=== PATIENT | male | born 1945 | race Caucasian/White ===

== ENCOUNTER → 2017-10-11 | Outpatient (CLI) | payer MEDICARE, OTHER ==
[2016-10-10 10:21] VITALS: BMI 24.8
[~2017-10-11] MED LIST: ACE325 PO; AMLO-99 PO; AMOX500T10 PO; ASPI-1471 PO; ASPI-764 PO; CA C1TAB85 PO; CHOL10005 PO; CLAR-1 PO; CYCL10TA29 PO; DICL-192 PO; DICL100G39 TOP; Docusate Sodium PO; ENOX80DI8 SQ; FLU45SYR17 IM; FLU45SYR25 IM ONLY; FLUT16SP19 NS; HCTZ25 PO; HYDR-385 PO; IBUP800T37 PO; KET10 PO; LEVO0.5P3 MC; LEVO50 PO; LEVO50TA86 PO; LEVO75TA73 PO; LIS5 PO; LISI-353 PO; LISI-362 PO; LOR5/325 PO; LORA-630 PO; Lisinopril PO; METO-1 PO; METO25TA89 PO; MIRT7.5T2 PO; ONDA4TAB PO; ONDA4TAB97 PO; OXYC-823 PO; OXYC-865 PO; PANT40TA63 PO; PANT40TA65 PO; PER PO; PNEU0.5D3 IM; POLY17PO25 PO; PRILOSEC PO; PRO25 PO; Pantoprazole Sod PO; TRA50 PO; TRAM-420 PO; TRAM100T22 PO; TRAZ-156 PO; TRI40I IART; TRI40I IM; TRIA15CR40 TP; VALS320T12 PO; WARF-1 PO; ZOL5 PO
[2017-10-11 09:58] LABS: INR 6.4
== END ==
LOC: LAB 09:15
PROVIDERS: ATTEND Internal Medicine
DX: I82.409 Acute embolism and thrombosis of unspecified deep veins of unspecified lower extremity (principal)
CPT/HCPCS: 36415; 85610

== ENCOUNTER → 2017-10-13 | Outpatient (CLI) | payer MEDICARE, OTHER ==
[2016-10-10 10:21] VITALS: BMI 24.8
[2017-10-13 08:59] LABS: INR 3.84
== END ==
LOC: LAB 08:39
PROVIDERS: ATTEND Internal Medicine
DX: I82.409 Acute embolism and thrombosis of unspecified deep veins of unspecified lower extremity (principal)
CPT/HCPCS: 36415; 85610

== ENCOUNTER → 2017-10-19 | Outpatient (CLI) | payer MEDICARE, OTHER ==
[2016-10-10 10:21] VITALS: BMI 24.8
--- NOTE | 2017-10-19 10:25 | EKG ---
FACILITY: [facility] - [place] PATIENT NAME: CORDELIA NEAL : [id number] MR: [id number] V: [id number] EXAM DATE: ORDERING PHYSICIAN: JOSÉ MIGUEL COLMENARES TECHNOLOGIST: BELKIS Palm Reason : SOB Blood Pressure : / mmHG Vent. Rate : 082 BPM Atrial Rate : 082 BPM P-R Int : 218 ms QRS Dur : 104 ms QT Int : 392 ms P-R-T Axes : 063 -81 061 degrees QTc Int : 457 ms Sinus rhythm with 1st degree AV block Left axis deviation Abnormal ECG When compared with ECG of 30-SEP-2016 09:52, premature ventricular complexes are no longer present Referred By: Confirmed By:
[2017-10-19 10:38] LABS: PLATELET COUNT, AUTOMATED 211 K/uL (150-450)
[2017-10-19 10:44] LABS: INR 2.81
[2017-10-19 11:02] LABS: LDL CHOLESTEROL 132 mg/dl
--- NOTE | 2017-10-19 14:14 | RADIOLOGY IMAGING REPORT ---
FAC[place]: [facility] [place] PATIENT NAME: Chito Jolley : 1945 MR: [id number] V: [id number] EXAM DATE: ORDERING PHYSICIAN: JOSÉ MIGUEL COLMENARES TECHNOLOGIST: Location: [facility] [place] Patient: Chito Jolley : 1945 Visit/Account:[id number] Date of Sevice: 10/19/2017 Exam type: CHEST PA AND LAT History: sob Comparison: September 30, 2016. Findings: There is chronic elevation of the right hemidiaphragm. No evidence of acute-appearing pulmonary cons olidation pleural effusion or pulmonary edema. The cardiac silhouette is normal in size. There Is a left shoulder arthroplasty. IMPRESSION: 1. Chronic elevation of the right hemidiaphragm although no evidence of acute pulmonary consolidatio n seen Report Dictated By: Asia Verde MD at 10/19/2017 2:07 PM Report E-Signed By: Asia Verde MD at 10/19/2017 2:09 PM WSN:[email or web address]
--- NOTE | 2017-10-19 16:26 | RADIOLOGY IMAGING REPORT ---
FACILITY: [facility] - [place], [place] PATIENT NAME: Chito Jolley : 1945 MR: [id number] V: [id number] EXAM DATE: ORDERING PHYSICIAN: JOSÉ MIGUEL COLMENARES TECHNOLOGIST: Location: [facility] Patient: Chito Jolley : 1945 Visit/Account:[id number] Date of Sevice: 10/19/2017 CTA CHEST WW/O CNTR (PULM ANG) HISTORY: see dx ADDITIONAL HISTORY: Elevated d-dimer. Shortness of breath. TECHNIQUE: CTA chest with intravenous contrast. Axial imaging acquired following administration of IV contrast timed for maximum opacification of the pulmonary arterial vasculature. Slab 3-D MIP samaria nstructed images were also created for further evaluation and interpretation. Reconstruction of the [facility] data set includes multiplanar 2-D in the sagittal and coronal planes and 3-D reconstructed larry nal slab MIP series. 3-D images were created by the technologist. One of the following dose optimiz ation techniques was utilized in the performance of this exam: Automated exposure control; adjustment of the mA and/or kV according to the patient's size; or use of an iterative reconstruction techniqu e. Specific details can be referenced in the facility's radiology CT exam operational policy. CONTRAST: 75 mL Isovue-370 COMPARISON: Comparison abdomen pelvis CT 03/08/2017 FINDINGS: Lungs/pleura: There is persistent mild peribronchial thickening seen right lower lobe unchanged. The re is associated mild right posterior basilar subpleural atelectasis or scar. There is a questionable 1.2 x 0.8 cm nodule with in the right pleura which is seen axial image 143-150 series 4. Heart/vessels: There is filling defect in the right lower lobe pulmonary artery with nonenhancement of the right lower lobe pulmonary arterial tree. There is a thin thread of persistent central luminal patency with contrasted blood passing through this area. This is best appreciated coronal axial imag es 135-142 series 4. Pulmonary arterial tree is otherwise normal in appearance. No convincing evidence of right heart strain. Pulmonary trunk is prominent however measuring 2.7 cm d iameter. Prominent vascular plaque is seen in the LAD. Mediastinum/lymph nodes: Negative. Visualized upper abdomen: Negative. Bones/soft tissues: Negative. Additional findings: None IMPRESSION: Near-complete obstruction of the right lower lobe pulmonary artery likely related to an acute or suba cute right lower lobe pulmonary embolus. There is associated mild chronic right lower lobe peribronch ial thickening and minimal right basilar scarring with a questionable right lower lobe pleural nodule . This raises the less likely possibility of malignancy but should warrant a follow-up study. Consequ ently, I would recommend a short-term follow-up contrasted CTA chest in 4 weeks to ensure sure there is resolution of the right lower lobe pulmonary arterial pathology and to reevaluate the right lower lobe pleura. Suspect pulmonary hypertension Results were called to JOSÉ MIGUEL COLMENARES at 10/19/2017 4:30 PM. He informs me the patient does have a h istory of previous pulmonary embolus but I do not have access to those prior exams. Acuity of the cur rent pulmonary embolus is uncertain although with residual tiny central patent lumen suggests it is o rganized and either subacute or chronic Report Dictated By: Carmine Ventura MD at 10/19/2017 2:44 PM Report E-Signed By: Carmine Ventura MD at 10/19/2017 4:22 PM WSN:[id number]
== END ==
LOC: LAB 10:17
PROVIDERS: ATTEND Internal Medicine
DX: Z96.611 Presence of right artificial shoulder joint (principal); J98.6 Disorders of diaphragm; I28.8 Other diseases of pulmonary vessels; R79.89 Other specified abnormal findings of blood chemistry; R07.9 Chest pain, unspecified; I82.409 Acute embolism and thrombosis of unspecified deep veins of unspecified lower extremity; R06.09 Other forms of dyspnea; M10.9 Gout, unspecified; E78.5 Hyperlipidemia, unspecified; I10 Essential (primary) hypertension; E03.9 Hypothyroidism, unspecified; R94.31 Abnormal electrocardiogram [ECG] [EKG]
CPT/HCPCS: 36415; 71046; 71275; 82040; 82247; 82310; 82374; 82435; 82465; 82565; 82947; 83718; 83880; 84075; 84132; 84155; 84295; 84443; 84450; 84460; 84478; 84520; 84550; 85025; 85379; 85610

== ENCOUNTER → 2017-10-20 | Outpatient (CLI) | payer MEDICARE, OTHER ==
[2016-10-10 10:21] VITALS: BMI 24.8
[2017-10-20 09:22] LABS: INR 2.68
== END ==
LOC: LAB 08:47
PROVIDERS: ATTEND Internal Medicine
DX: I82.409 Acute embolism and thrombosis of unspecified deep veins of unspecified lower extremity (principal)
CPT/HCPCS: 36415; 85610

== ENCOUNTER → 2017-10-25 | Outpatient (CLI) | payer MEDICARE, OTHER ==
[2016-10-10 10:21] VITALS: BMI 24.8
--- NOTE | 2017-10-26 19:55 | RADIOLOGY IMAGING REPORT ---
FACILITY: [facility] - [place] PATIENT NAME: CORDELIA NEAL : [id number] MR: [id number] V: [id number] EXAM DATE: ORDERING PHYSICIAN: JOSÉ MIGUEL COLMENARES TECHNOLOGIST: Katharine Harding EXAMINATION:TWO-DIMENSIONAL ECHOCARDIOGRAPH REASON:SHORTNESS OF BREATH. 2D Measurements (normal values in centimeters) LV endLV endRV endVent.LV PostAorticLeftPercent DiastolicSystolicDiastolicSeptumWallRootAtriumShortening (3.5-5.7)(0.9-2.6)(0.6-1.1)(0.6-1.1)(2.0-3.7)(1.9-4.0)(25-35%) [id number]% STROKE VOLUME: 73 mL ESTIMATED EJECTION FRACTION:75% PARASTERNAL LONG AXIS: Overall left ventricular systolic function does appear to be normal. No specific wall motion abnormalities are noted. The right ventricle also appears to contract normally. Aortic valve is sclerotic. Color examination of the valves revealed a trace of mitral and aortic insufficiency present. TAPSE is measured at 1.8 which is within normal range for right ventricular function. PARASTERNAL SHORT AXIS: Somewhat technically difficult but again overall left ventricular function appears to be normal. Aortic valve is not well seen but it does appear to be sclerotic possibly borderline stenotic. Trace of aortic insufficiency is noted. APICAL FOUR AND TWO CHAMBER: Normal left ventricular and right ventricular systolic function. Aortic valve area was measured at 2.0 cm2 with mean pressure gradient across the valve of 14 mmHg and a dimensionless index of 0.4 indicating mild to moderate stenosis. There is some aortic insufficiency present. Mitral valve area was measured within normal range at 4.7 cm2. Left atrial volume is moderately increased at 35 mL/m2. Right atrial volume is measured within normal range at 13 mL/m2. Mild amount of tricuspid insufficiency is noted. Tricuspid regurgitation V-max is measured at 3.22 m/sec. Estimated right atrial pressure is 3 mmHg. There is mild mitral annular calcification but no stenosis of the valve. No wall motion abnormalities are noted. SUBCOSTAL VIEW: Somewhat technically difficult but no pericardial effusion was noted. No atrial septal or ventricular septal defects were appreciated. Doppler examination of the mitral valve in diastole does reveal the A wave greater than the E wave. IVC is normal in size. OVERALL IMPRESSION: 1. Normal left ventricular ejection fraction between 70 to 75%. No wall motion abnormalities were noted. 2. Grade 1/4 decrease in diastolic function. 3. Mild right ventricular enlargement and moderate left atrial enlargement. The other chamber sizes are normal. 4. The aortic valve which appears to be mild to borderline moderately stenotic. The valve area was measured at 2.0 cm2 but the mean pressure gradient across the valve was 14 mmHg and the dimensionless index was 0.4. There is a trace amount of aortic insufficiency present. 5. There is mild mitral annular calcification. No stenosis in the mitral valve was noted. Trace to mild amount of mitral insufficiency was noted. 6. Trace amount of pulmonic insufficiency is noted. 7. A trace to mild amount of tricuspid insufficiency with estimated right ventricular systolic pressures of 44 mmHg which does include an estimated right atrial pressure of 3 mmHg indicating mild to borderline moderate pulmonary hypertension and increased right ventricular systolic pressures. 8. In comparison to the examination done on 02/10/13, the only change has been that the aortic valve has now become stenotic. The right ventricular pressures are approximately the same. Dictated by: Virginia Cabello M.D. on 10/25/2017 at 21:49 Transcribed by: MARYA on 10/26/2017 at 10:23 Approved by: Virginia Cabello M.D. on 10/26/2017 at 19:53 [facility]
== END ==
LOC: RESP 01:57
PROVIDERS: ATTEND Internal Medicine
DX: I51.7 Cardiomegaly (principal); I35.2 Nonrheumatic aortic (valve) stenosis with insufficiency; I70.8 Atherosclerosis of other arteries; I34.0 Nonrheumatic mitral (valve) insufficiency; I37.1 Nonrheumatic pulmonary valve insufficiency; I07.1 Rheumatic tricuspid insufficiency; I27.20 Pulmonary hypertension, unspecified
CPT/HCPCS: 93306; 94060; 94726; 94729

== ENCOUNTER → 2017-10-27 | Outpatient (CLI) | payer MEDICARE, OTHER ==
[2016-10-10 10:21] VITALS: BMI 24.8
[2017-10-27 10:43] LABS: INR 2.91
== END ==
LOC: LAB 08:45
PROVIDERS: ATTEND Internal Medicine
DX: I82.409 Acute embolism and thrombosis of unspecified deep veins of unspecified lower extremity (principal)
CPT/HCPCS: 36415; 85610

== ENCOUNTER → 2017-11-05 | Outpatient (CLI) | payer MEDICARE, OTHER ==
[2016-10-10 10:21] VITALS: BMI 24.8
[~2017-11-05] MED LIST changes: +HYDR-4225 PO
[2017-11-05 08:58] LABS: INR 3.25
== END ==
LOC: LAB 08:24
PROVIDERS: ATTEND Internal Medicine
DX: I82.409 Acute embolism and thrombosis of unspecified deep veins of unspecified lower extremity (principal)
CPT/HCPCS: 36415; 85610

== ENCOUNTER → 2017-11-18 | Outpatient (CLI) | payer MEDICARE, OTHER ==
[2016-10-10 10:21] VITALS: BMI 24.8
[~2017-11-18] MED LIST changes: +IOPAMIDOL 76% 75 ML INFUS BTL 75 ML ONE; +NS 0.9% 150 ML BAG 150 ML ONE; +PRED20TA6 PO
[2017-11-18 09:16] LABS: INR 2.39
--- NOTE | 2017-11-18 09:27 | RADIOLOGY IMAGING REPORT ---
FACILITY: [facility] PATIENT NAME: Chito Jolley : 1945 MR: [id number] V: [id number] EXAM DATE: ORDERING PHYSICIAN: JOSÉ MIGUEL COLMENARES TECHNOLOGIST: Location: [facility] Patient: Chito Jolley : 1945 Visit/Account:[id number] Date of Sevice: 11/18/2017 CTA CHEST WW/O CNTR (PULM ANG) HISTORY: PE, CP TECHNIQUE: CTA chest with intravenous contrast attention to pulmonary arteries. Sagittal, coronal a nd slab 3D MIP coronal reconstructed images were also created for further evaluation and interpretati on. One of the following dose optimization techniques was utilized in the performance of this exam: a utomated exposure control; adjustment of the mA and/or kV according to the patient's size; or use of an iterative reconstruction technique. Specific details can be referenced in the facility's radiolog y CT exam operational policy. CONTRAST: 75 mL Isovue-370 IV. COMPARISON: CT chest 10/09/2017. FINDINGS: Heart/vessels: There is no filling defect in either the right or left pulmonary arterial vascular tr ee. Again seen is narrowing of the right lower lobe pulmonary artery, with adjacent soft tissue thic kening. This is unchanged dating back to 07/27/2016. Lungs/pleura: There is mild atelectasis right lower lobe. There is mild pleural thickening right laurel ng base, unchanged. The lungs are otherwise clear. Mediastinum: Normal. Lymph nodes: There is no lymphadenopathy. Visualized upper abdomen: Visualized portions of the liver, spleen, adrenal glands, and pancreas are normal. Bones/soft tissues: There are postoperative changes from a left shoulder arthroplasty. IMPRESSION: 1. No evidence of acute pulmonary embolus. There is poor filling of the right lower lobe pulmonary artery, with adjacent soft tissue thickening, with narrowing of the artery. This is not significantl y changed from comparison CT abdomen pelvis 07/27/2016. Although CT abdomen pelvis was performed wit h slightly different bolus technique. This is unchanged from prior CT chest 10/19/2017. There is par tial atelectasis left lower lobe, likely secondary to postobstructive atelectasis. Recommend follow- up CT chest with IV contrast in 6 months to confirm stability. 2. Postoperative changes from a left shoulder arthroplasty. Report Dictated By: Dada Lopez at 11/18/2017 9:06 AM Report E-Signed By: Dada Lopez at 11/18/2017 9:23 AM WSN:[email or web address]
== END ==
LOC: CT 01:56
PROVIDERS: ATTEND Internal Medicine
DX: J98.11 Atelectasis (principal)
CPT/HCPCS: 36415; 71275; 85610; Q9967

== ENCOUNTER → 2017-11-23 | Outpatient (CLI) | payer MEDICARE, OTHER ==
[2016-10-10 10:21] VITALS: BMI 24.8
[~2017-11-23] MED LIST changes: -IOPAMIDOL 76% 75 ML INFUS BTL 75 ML ONE; -NS 0.9% 150 ML BAG 150 ML ONE; +PRED-420 PO; +REGADENOSON 0.4 MG/5 ML SYR ONE
--- NOTE | 2017-11-23 12:31 | RADIOLOGY IMAGING REPORT ---
FACILITY: [facility] - [place] PATIENT NAME: Chito Jolley : 1945 MR: [id number] V: [id number] EXAM DATE: ORDERING PHYSICIAN: JOSÉ MIGUEL COLMENARES TECHNOLOGIST: Location: [facility] - [place] Patient: Chito Jolley : 1945 Visit/Account:[id number] Date of Sevice: 11/23/2017 EXAMINATION: Single isotope SPECT imaging with regadenoson infusion and gated SPECT imaging. DATE OF EXAMINATION: 11/23/17. DATE OF INTERPRETATION: 11/23/17. REQUESTING PHYSICIAN: JOSÉ MIGUEL COLMENARES. INDICATION: The patient is a 72-year-old M evaluated for CP. PROCEDURE: After informed consent the patient received an intravenous injection of 12.2 mCi of Tc-99 m sestamibi followed at an appropriate time interval by rest imaging. The patient then subsequently received an intravenous infusion of 0.4 mg of regadenoson per protocol without complication. Resting heart rate was 82 bpm with a peak heart rate of 99 bpm. Blood pressure at rest was 168 / 99 and fol lowing infusion was 168 / 99. Baseline EKG demonstrates sinus rhythm. There were no EKG changes of ischemia following infusion. Symptoms were nonspecific. The patient then received an intravenous in jection of 30.3 mCi of Tc-99m sestamibi followed by stress imaging. RAW DATA: Examination of the summed raw data revealed a good quality study. MYOCARDIAL PERFUSION: The tomographic images demonstrate normal myocardial perfusion with no evidenc e of infarct or ischemia. There is no TID. GATED IMAGES: The gated images demonstrate hyperdynamic ejection fraction >70% with normal wall sandy on and thickening. IMPRESSION: 1. Nondiagnostic Lexiscan stress ECG 2. Normal myocardial perfusion scan. 3. Hyperdynamic LV systolic function; LVEF >70%. 4. Based on the results of this exam, the patient appears to be at low risk for future cardiovascular events. Report Dictated By: Shahram Pak at 11/23/2017 12:23 PM Report E-Signed By: Shahram Pak at 11/23/2017 12:27 PM WSN:[id number]
== END ==
LOC: RESP 02:26
PROVIDERS: ATTEND Internal Medicine
DX: R07.9 Chest pain, unspecified (principal); I10 Essential (primary) hypertension; R06.09 Other forms of dyspnea; I82.409 Acute embolism and thrombosis of unspecified deep veins of unspecified lower extremity; I26.99 Other pulmonary embolism without acute cor pulmonale
CPT/HCPCS: 78452; 93017; A9500; J2785

== ENCOUNTER → 2017-12-02 | Outpatient (CLI) | payer MEDICARE, OTHER ==
[2016-10-10 10:21] VITALS: BMI 24.8
[~2017-12-02] MED LIST changes: -REGADENOSON 0.4 MG/5 ML SYR ONE
[2017-12-02 08:41] LABS: INR 1.99
== END ==
LOC: LAB 08:17
PROVIDERS: ATTEND Internal Medicine
DX: Z51.81 Encounter for therapeutic drug level monitoring (principal); Z79.01 Long term (current) use of anticoagulants
CPT/HCPCS: 36415; 85610

== ENCOUNTER → 2017-12-16 | Outpatient (CLI) | payer MEDICARE, OTHER ==
[2016-10-10 10:21] VITALS: BMI 24.8
[2017-12-16 09:14] LABS: INR 1.49
== END ==
LOC: LAB 08:45
PROVIDERS: ATTEND Internal Medicine
DX: Z51.81 Encounter for therapeutic drug level monitoring (principal); Z79.01 Long term (current) use of anticoagulants
CPT/HCPCS: 36415; 85610

== ENCOUNTER → 2017-12-24 | Outpatient (CLI) | payer MEDICARE, OTHER ==
[2016-10-10 10:21] VITALS: BMI 24.8
[2017-12-24 08:49] LABS: INR 1.43
== END ==
LOC: LAB 08:10
PROVIDERS: ATTEND Internal Medicine
DX: I26.99 Other pulmonary embolism without acute cor pulmonale (principal)
CPT/HCPCS: 36415; 85610

== ENCOUNTER → 2018-02-04 | Outpatient (CLI) | payer MEDICARE, OTHER ==
[2016-10-10 10:21] VITALS: BMI 24.8
[2018-02-04 09:06] LABS: INR 3.59
== END ==
LOC: LAB 08:42
PROVIDERS: ATTEND Internal Medicine
DX: Z51.81 Encounter for therapeutic drug level monitoring (principal); Z79.01 Long term (current) use of anticoagulants
CPT/HCPCS: 36415; 85610

== ENCOUNTER → 2018-02-17 | Outpatient (CLI) | payer MEDICARE, OTHER ==
[2016-10-10 10:21] VITALS: BMI 24.8
[~2018-02-17] MED LIST changes: +LISI20TA29 PO
[2018-02-17 09:21] LABS: PLATELET COUNT, AUTOMATED 232 K/uL (150-450)
== END ==
LOC: LAB 08:39
PROVIDERS: ATTEND Internal Medicine
DX: Z12.5 Encounter for screening for malignant neoplasm of prostate (principal); M10.9 Gout, unspecified; I10 Essential (primary) hypertension; E03.9 Hypothyroidism, unspecified; I26.99 Other pulmonary embolism without acute cor pulmonale; R06.09 Other forms of dyspnea
CPT/HCPCS: 36415; 81001; 83880; 84443; 84550; 85025; G0103; 82040; 82247; 82310; 82374; 82435; 82565; 82947; 84075; 84132; 84153; 84155; 84295; 84450; 84460; 84520

== ENCOUNTER → 2018-03-03 | Outpatient (CLI) | payer MEDICARE, OTHER ==
[2016-10-10 10:21] VITALS: BMI 24.8
[~2018-03-03] MED LIST changes: +COLC0.6T2 PO; +ESCI10TA8 PO; +FEBU40TA2 PO
[2018-03-03 09:27] LABS: INR 2.35
== END ==
LOC: LAB 08:40
PROVIDERS: ATTEND Internal Medicine
DX: I26.99 Other pulmonary embolism without acute cor pulmonale (principal); M10.9 Gout, unspecified; I82.409 Acute embolism and thrombosis of unspecified deep veins of unspecified lower extremity
CPT/HCPCS: 36415; 85610

== ENCOUNTER → 2018-05-12 | Outpatient (CLI) | payer MEDICARE, OTHER ==
[2016-10-10 10:21] VITALS: BMI 24.8
[~2018-05-12] MED LIST changes: +AMLO-96 PO; +PROM-110 PO; -TRAZ-156 PO; +TRAZ50TA34 PO
[2018-05-12 12:33] LABS: PLATELET COUNT, AUTOMATED 213 K/uL (150-450)
[2018-05-12 12:57] LABS: INR 1.06
[2018-05-12 13:00] LABS: LDL CHOLESTEROL 88 mg/dl
--- NOTE | 2018-05-12 15:59 | RADIOLOGY IMAGING REPORT ---
FACILITY: [facility] - [place] PATIENT NAME: Chito Jolley : 1945 MR: [id number] V: [id number] EXAM DATE: ORDERING PHYSICIAN: JOSÉ MIGUEL COLMENARES TECHNOLOGIST: Location: [facility] - [place] Patient: Chito Jolley : 1945 Visit/Account:[id number] Date of Sevice: 05/12/2018 Exam type: ACUTE ABDOMEN SERIES 3 VIEW History: Abdomen pain, history of small bowel obstruction Comparison: July 29, 2016. Findings: Gas is seen in a rounded loop of bowel in the midabdomen measuring approximately 7.9 cm in diameter. This may represent a dilated loop of sigmoid colon although the appearance is nonspecific. Remainde r the bowel gas pattern is nonspecific. There is no evidence of free air beneath hemidiaphragms. 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 There are moderate spondylotic changes of the thoracic spine. PA view the chest reveals chronic elevation right hemidiaphragm mild amount o f bibasilar scarring/atelectasis. No evidence of focal infiltrates or pulmonary edema. Cardiac silh ouette is normal in size. There is a left shoulder arthroplasty IMPRESSION: 1. L gas pattern is nonspecific other than gas seen in a rounded loop of bowel in the midabdomen rosio suring approximately 7.9 cm in diameter. This may represent a dilated loop of colon although the jg earance is nonspecific. Mild atelectasis/scarring in the lower lung dumont Report Dictated By: Asia Verde MD at 05/12/2018 3:53 PM Report E-Signed By: Asia Verde MD at 05/12/2018 3:56 PM WSN:[email or web address]
== END ==
LOC: LAB 11:47
PROVIDERS: ATTEND Internal Medicine
DX: J98.11 Atelectasis (principal); R10.13 Epigastric pain; R42 Dizziness and giddiness; R53.83 Other fatigue; M10.9 Gout, unspecified; I10 Essential (primary) hypertension; E03.9 Hypothyroidism, unspecified; I26.99 Other pulmonary embolism without acute cor pulmonale
CPT/HCPCS: 36415; 74022; 81001; 82040; 82150; 82247; 82310; 82374; 82435; 82465; 82565; 82947; 83690; 83718; 84075; 84132; 84155; 84295; 84439; 84443; 84450; 84460; 84478; 84520; 84550; 85025; 85610

== ENCOUNTER → 2018-05-23 | Outpatient (CLI) | payer MEDICARE, OTHER ==
[2016-10-10 10:21] VITALS: BMI 24.8
[~2018-05-23] MED LIST changes: +LORA-1456 PO
[2018-05-23 08:20] LABS: INR 1.13
== END ==
LOC: LAB 07:55
PROVIDERS: ATTEND Internal Medicine
DX: I26.99 Other pulmonary embolism without acute cor pulmonale (principal)
CPT/HCPCS: 36415; 85610

== ENCOUNTER 2018-05-24 13:59 | Emergency (ER) | payer MEDICARE, OTHER ==
[2016-10-10 10:21] VITALS: Wt 81.6 kg
[~2018-05-24 13:59] MED LIST changes: -LORA-1456 PO
[2018-05-24] MEDS ORDERED: WARF-1 PO (14:11)
[2018-05-24] MEDS ORDERED: DIAZEPAM 5 MG TAB PO ONE (14:20)
--- NOTE | 2018-05-24 14:26 | ER Report ---
History and Physical Time Seen By MD: 14:25 Hx. of Stated Complaint: pt thinks he is having an anxiety attack, that is not getting better since this am. Feels weak, uncoordinated, can't sit still, wants to crawlout of his skin (ZEESHAN COURTNEY MD) HPI/ROS CHIEF COMPLAINT: Panic attack HISTORY OF PRESENT ILLNESS: Patient is a 73-year-old male with known anxiety. Presents with complaint of anxiety. Denies any injury denies fevers or chills denies chest pain shortness of breath denies abdominal pain nausea vomiting or diarrhea. REVIEW OF SYSTEMS: Respiratory: No cough, no dyspnea. Cardiovascular: No chest pain, no palpitations. Gastrointestinal: No vomiting, no abdominal pain. Musculoskeletal: No back pain. (ZEESHAN COURTNEY MD) Allergies: Coded Allergies: morphine (Unverified Adverse Reaction, Intermediate, VOMITING, 05/24/18) Home Meds Active Scripts Promethazine Hcl (PROMETHAZINE HCL) 25 Mg Tablet, 25 MG PO Q8H Y for nausea, # 30 TAB Prov:JOSÉ MIGUEL COLMENARES MD 05/12/18 Tramadol Hcl (TRAMADOL HCL) 50 Mg Tablet, 1 TAB PO QID for for chronic back pain , #120 TAB 5 Refills Prov:JOSÉ MIGUEL COLMENARES MD 05/12/18 Amlodipine Besylate (AMLODIPINE BESYLATE) 5 Mg Tablet, 1 TAB PO QDAY, #90 TAB 3 Refills Prov:JOSÉ MIGUEL COLMENARES MD 05/12/18 Colchicine (COLCRYS) 0.6 Mg Tablet, 0.6 MG PO 1-2XD, #60 TAB Prov:JOSÉ MIGUEL COLMENARES MD 03/03/18 Febuxostat (ULORIC) 40 Mg Tablet, 40 MG PO QDAY, #30 TAB 6 Refills Prov:JOSÉ MIGUEL COLMENARES MD 03/03/18 Escitalopram Oxalate (ESCITALOPRAM OXALATE) 10 Mg Tablet, 10 MG PO QDAY, #30 TAB 3 Refills Prov:JOSÉ MIGUEL COLMENARES MD 03/03/18 Lisinopril (LISINOPRIL) 20 Mg Tablet, 20 MG PO BID, #180 TAB 3 Refills Prov:JOSÉ MIGUEL COLMENARES MD 02/17/18 Pantoprazole Sodium (PANTOPRAZOLE SODIUM) 40 Mg Tablet.dr, 40 MG PO QDAY, #90 TAB.SR 3 Refills Prov:JOSÉ MIGUEL COLMENARES MD 12/22/17 Levothyroxine Sodium (LEVOTHYROXINE SODIUM) 75 Mcg Tablet, 75 MCG PO QDAY, #90 TAB 3 Refills Prov:JOSÉ MIGUEL COLMENARES MD 06/23/17 Fluticasone Prop 50 Mcg Ns (FLONASE 50 MCG NS) 16 Gm [place].susp, 2 SPRAYS NS QDAY, #1 BOT 3 Refills Prov:JOSÉ MIGUEL COLMENARES MD 03/23/17 Reported Medications Warfarin Sodium (COUMADIN) 5 Mg Tablet, 5 MG PO BID 05/24/18 Discontinued Scripts Warfarin Sodium (COUMADIN) 5 Mg Tablet, 1-2 TAB PO QDAY, #40 TAB 9 Refills Prov:JOSÉ MIGUEL COLMENARES MD 02/15/18 Past Medical/Surgical History Past medical history for allergic rhinitis, hypertension, GERD, osteoarthritis, insomnia, hypothyroidism, tonsillectomy, left iliac aneurysm surgery 2013, appendectomy (ZEESHAN COURTNEY MD) Hx Smoking: No Smoking Status: Never Smoker Exposure to Second Hand Smoke?: No Hx Substance Use Disorder: No Hx Alcohol Use: No (ZEESHAN COURTNEY MD) Constitutional Vital Sign - Last 24 Hours 05/24/18 05/24/18 05/24/18 05/24/18 14:03 14:03 14:14 14:20 Temp 97.6 Pulse 102 Resp 22 B/P (MAP) 133/87 (102) 133/87 128/104 (112) Pulse Ox 93 O2 Delivery Room Air O2 Flow Rate 2.0 05/24/18 05/24/18 05/24/18 05/24/18 14:29 14:59 15:03 15:29 Pulse 101 110 105 B/P (MAP) 102/97 (99) Pulse Ox 93 92 (LAURORA,SMOOTH V DO) Physical Exam General Appearance: The patient is alert, has no immediate need for airway protection and no signs of toxicity. [ ] Eyes: Pupils equal and round no pallor or injection. ENT, Mouth: Mucous membranes are moist. Respiratory: There are no retractions, lungs are clear to auscultation. Cardiovascular: Regular rate and rhythm. [ ] Gastrointestinal: Abdomen is soft and non tender, no masses, bowel sounds normal. Neurological: Awake alert no acute distress Skin: Warm and dry, no rashes. Musculoskeletal: Neck is supple non tender. Extremities are nontender, nonswollen and have full range of motion. (ZEESHAN COURTNEY MD) Medical Decision Making Data Points Result Diagram: 05/24/18 1503 05/24/18 1503 Laboratory Hematology Test 05/24/18 15:00 05/24/18 15:03 D-Dimer Quantitative (PE/DVT) 1.47 ug/ml (0-0.50) Red Blood Count 5.20 M/uL (4.00-5.60) Mean Corpuscular Volume 86.2 fL (80.0-96.0) Mean Corpuscular Hemoglobin 30.5 pg (26.0-33.0) Mean Corpuscular Hemoglobin Concent 35.3 g/dL (32.0-36.0) Red Cell Distribution Width 15.6 % (11.5-14.5) Mean Platelet Volume 8.4 fL (7.2-11.1) Neutrophils (%) (Auto) 51.1 % (39.4-72.5) Lymphocytes (%) (Auto) 33.4 % (17.6-49.6) Monocytes (%) (Auto) 9.2 % (4.1-12.4) Eosinophils (%) (Auto) 5.4 % (0.4-6.7) Basophils (%) (Auto) 0.9 % (0.3-1.4) Nucleated RBC Relative Count (auto) 0.2 /100WBC Neutrophils # (Auto) 3.0 K/uL (2.0-7.4) Lymphocytes # (Auto) 1.9 K/uL (1.3-3.6) Monocytes # (Auto) 0.5 K/uL (0.3-1.0) Eosinophils # (Auto) 0.3 K/uL (0.0-0.5) Basophils # (Auto) 0.1 K/uL (0.0-0.1) Nucleated RBC Absolute Count (auto) 0.01 K/uL Prothrombin Time 16.2 seconds (12.0-14.4) Prothromb Time International Ratio 1.29 Activated Partial Thromboplast Time 27 seconds (23-35) Sodium Level 140 mmol/L (137-145) Potassium Level 3.7 mmol/L (3.5-5.0) Chloride Level 105 mmol/L (98-107) Carbon Dioxide Level 23 mmol/L (22-30) Blood Urea Nitrogen 17 mg/dl (9-21) Creatinine 0.90 mg/dl (0.66-1.25) Glomerular Filtration Rate Calc > 60.0 Random Glucose 113 mg/dl (75-110) Calcium Level 9.3 mg/dl (8.4-10.2) Total Bilirubin 0.5 mg/dl (0.2-1.3) Aspartate Amino Transf (AST/SGOT) 38 U/L (0-35) Alanine Aminotransferase (ALT/SGPT) 33 U/L (0-56) Alkaline Phosphatase 151 U/L (0-126) Troponin I 0.014 ng/ml B-Type Natriuretic Peptide 71 pg/ml (0-100) Total Protein 8.3 g/dl (6.3-8.2) Albumin 4.3 g/dl (3.5-5.0) Chemistry Test 05/24/18 15:00 05/24/18 15:03 D-Dimer Quantitative (PE/DVT) 1.47 ug/ml (0-0.50) White Blood Count 5.8 k/uL (4.5-11.0) Red Blood Count 5.20 M/uL (4.00-5.60) Hemoglobin 15.8 g/dL (14.0-18.0) Hematocrit 44.8 % (42.0-52.0) Mean Corpuscular Volume 86.2 fL (80.0-96.0) Mean Corpuscular Hemoglobin 30.5 pg (26.0-33.0) Mean Corpuscular Hemoglobin Concent 35.3 g/dL (32.0-36.0) Red Cell Distribution Width 15.6 % (11.5-14.5) Platelet Count 212 K/uL (150-450) Mean Platelet Volume 8.4 fL (7.2-11.1) Neutrophils (%) (Auto) 51.1 % (39.4-72.5) Lymphocytes (%) (Auto) 33.4 % (17.6-49.6) Monocytes (%) (Auto) 9.2 % (4.1-12.4) Eosinophils (%) (Auto) 5.4 % (0.4-6.7) Basophils (%) (Auto) 0.9 % (0.3-1.4) Nucleated RBC Relative Count (auto) 0.2 /100WBC Neutrophils # (Auto) 3.0 K/uL (2.0-7.4) Lymphocytes # (Auto) 1.9 K/uL (1.3-3.6) Monocytes # (Auto) 0.5 K/uL (0.3-1.0) Eosinophils # (Auto) 0.3 K/uL (0.0-0.5) Basophils # (Auto) 0.1 K/uL (0.0-0.1) Nucleated RBC Absolute Count (auto) 0.01 K/uL Prothrombin Time 16.2 seconds (12.0-14.4) Prothromb Time International Ratio 1.29 Activated Partial Thromboplast Time 27 seconds (23-35) Glomerular Filtration Rate Calc > 60.0 Calcium Level 9.3 mg/dl (8.4-10.2) Total Bilirubin 0.5 mg/dl (0.2-1.3) Aspartate Amino Transf (AST/SGOT) 38 U/L (0-35) Alanine Aminotransferase (ALT/SGPT) 33 U/L (0-56) Alkaline Phosphatase 151 U/L (0-126) Troponin I 0.014 ng/ml B-Type Natriuretic Peptide 71 pg/ml (0-100) Total Protein 8.3 g/dl (6.3-8.2) Albumin 4.3 g/dl (3.5-5.0) Coagulation Test 05/24/18 15:00 05/24/18 15:03 D-Dimer Quantitative (PE/DVT) 1.47 ug/ml Prothrombin Time 16.2 seconds Prothromb Time International Ratio 1.29 Activated Partial Thromboplast Time 27 seconds (SMOOTH DIEZ DO) EKG/Imaging EKG Interpretation EKG shows sinus tachycardia with fusion complexes incomplete right bundle branch block with left anterior fascicular block. EKG shows sinus rhythm with occasional PVCs. Incomplete right bundle branch block with left anterior fascicular block this was compared to an EKG from 10/19 which showed sinus rhythm with first-degree AV block left axis deviation, no significant changes were noted. Monitor Interpretation: Sinus Tachycardia (ZEESHAN COURTNEY MD) ED Course/Re-evaluation ED Course 05/24/2018 2:31:50 pm symptoms consistent with anxiety attack we will check EKG (ZEESHAN COURTNEY MD) Clinical Indication for ER IV: IV Access ED Course 05/24/2018 4:19:42 pm Pt signed out to me pending d-dimer and INR. PTs d- dimer is elevated and inr is not therapeutic. spoke with pt and he had his INR checked the other day and he is aware it is low and was told to start today doubling up on his coumadin. Will image for PE since pt is not therapeutic. 05/24/2018 5:30:[address] shows chronic PE but nothing new. PT is feeling much better. Family asked if we could write for an anxiety medication. PT is also going to have his inr rechecked on Wednesday by pcp Decision to Disposition Date: May 24, 2018 Decision to Disposition Time: 17:31 (SMOOTH DIEZ DO) Depart Departure Latest Vital Signs Vital Signs Date Time Temp Pulse Resp B/P (MAP) Pulse Ox O2 Delivery O2 Flow Rate FiO2 05/24/18 15:29 105 05/24/18 15:03 102/97 (99) 05/24/18 14:59 92 05/24/18 14:20 2.0 05/24/18 14:03 97.6 22 Room Air (SMOOTH DIEZ DO) Impression: Primary Impression: Anxiety attack Condition: Improved Disposition: HOME OR SELF-CARE Referrals: JOSÉ MIGUEL COLMENARES MD (PCP) 5 Days New Scripts Lorazepam (ATIVAN) 1 Mg Tablet 1 MG PO Q8-12H Y for ANXIETY, #10 TAB Prov: SMOOTH DIEZ DO 05/24/18 Patient Instructions: Anxiety (GEN) Additional Instructions: Your blood work today showed your warfarin level to be not therapeutic. Continue double your dose as per your family doctor. It is important that you have your INR rechecked to determine your dosage of warfarin this Wednesday or as instructed by your family doctor. Ativan one every 8 hours as needed for anxiety. Return as needed. ZEESHAN COURTNEY MD May 24, 2018 14:25 SMOOTH DIEZ DO May 24, 2018 16:21
--- NOTE | 2018-05-24 14:38 | EKG ---
FACILITY: [facility] PATIENT NAME: CORDELIA NEAL : [id number] MR: [id number] V: [id number] EXAM DATE: ORDERING PHYSICIAN: ZEESHAN COURTNEY TECHNOLOGIST: JANNA Palm Reason : ANXIETY Blood Pressure : / mmHG Vent. Rate : 096 BPM Atrial Rate : 096 BPM P-R Int : 176 ms QRS Dur : 102 ms QT Int : 362 ms P-R-T Axes : 041 -77 051 degrees QTc Int : 457 ms Sinus rhythm with occasional premature ventricular complexes Nonspecific interventricular conduction delay Abnormal ECG Confirmed by BEL MARQUEZ ([id number]) on 05/24/2018 2:49:11 PM Referred By: ROZ Confirmed By:BEL MARQUEZ
[2018-05-24] MEDS ORDERED: LORazepam 2 MG/ML VIAL IVP ONE (14:55)
[2018-05-24] MEDS ORDERED: fentaNYL CITR 100 MCG/2 ML AMP IVP ONE (15:35)
[2018-05-24] MEDS ORDERED: ASPIRIN 81 MG CHEW PO ONE (15:35)
[2018-05-24 15:40] LABS: PLATELET COUNT, AUTOMATED 212 K/uL (150-450)
--- NOTE | 2018-05-24 15:45 | EKG ---
FACILITY: [facility] - [place] PATIENT NAME: CORDELIA NEAL : [id number] MR: [id number] V: [id number] EXAM DATE: ORDERING PHYSICIAN: ZEESHAN COURTNEY TECHNOLOGIST: Test Reason : anxiety Blood Pressure : / mmHG Vent. Rate : 107 BPM Atrial Rate : 107 BPM P-R Int : 174 ms QRS Dur : 102 ms QT Int : 346 ms P-R-T Axes : 045 -85 056 degrees QTc Int : 461 ms Sinus tachycardia with possible aberrantly conducted premature supraventricular complex Nonspecific interventricular conduction delay Left axis Abnormal ECG Similar to previous Confirmed by BEL MARQUEZ ([id number]) on 05/25/2018 6:18:06 AM Referred By: Confirmed By:BEL MARQUEZ
[2018-05-24 16:14] LABS: INR 1.29
[2018-05-24] MEDS ORDERED: IOPAMIDOL 76% 75 ML INFUS BTL 75 ML ONE (16:26)
[2018-05-24] MEDS ORDERED: NS(*) 0.9% 50 ML BAG 50 ML ONE (16:26)
--- NOTE | 2018-05-24 16:38 | RADIOLOGY IMAGING REPORT ---
FACILITY: [facility] PATIENT NAME: Chito Jolley : 1945 MR: [id number] V: [id number] EXAM DATE: ORDERING PHYSICIAN: ZEESHAN COURTNEY TECHNOLOGIST: [place] [facility] [place]: Chito Jolley : 1945 Visit/Account:[id number] Date of Sevice: 05/24/2018 Single view of the chest Indication: Chest pain.. Comparison: Examination of the chest from October 19, 2017 Findings: Heart size within normal limits. Stable elevation right hemidiaphragm. Lungs are without new infiltrate, consolidation, effusion or p neumothorax. No failure. No acute bony finding IMPRESSION: 1. No acute cardiopulmonary process. Report Dictated By: Enrique Hernandez MD at 05/24/2018 4:32 PM Report E-Signed By: Enrique Hernandez MD at 05/24/2018 4:33 PM WSN:[email or web address]
--- NOTE | 2018-05-24 17:23 | RADIOLOGY IMAGING REPORT ---
FACILITY: [facility] PATIENT NAME: Chito Jolley : 1945 MR: [id number] V: [id number] EXAM DATE: ORDERING PHYSICIAN: SMOOTH DIEZ TECHNOLOGIST: Location: [facility] - [place] Patient: Chito Jolley : 1945 Visit/Account:[id number] Date of Sevice: 05/24/2018 CTA CHEST WW/O CNTR (PULM ANG) HISTORY: Positive d-dimer, history of PE, chest pain ADDITIONAL HISTORY: None. TECHNIQUE: CTA chest with intravenous contrast. Axial imaging acquired following administration of IV contrast timed for maximum opacification of the pulmonary arterial vasculature. Slab 3-D MIP samaria nstructed images were also created for further evaluation and interpretation. Reconstruction of the [facility] data set includes multiplanar 2-D in the sagittal and coronal planes and 3-D reconstructed larry nal slab MIP series. 3-D images were created by the technologist. Dose Lowering Technique One of the following dose optimization techniques was utilized in the performance of this exam: Autom ated exposure control; adjustment of the mA and/or kV according to the patient's size; or use of an i terative reconstruction technique. Specific details can be referenced in the facility's radiology C T exam operational policy. CONTRAST: 75 mL Isovue-[id number] COMPARISON: November 18, 2017 and October 19, 2017 FINDINGS: Lungs/pleura: Mild atelectasis and chronic peribronchial thickening in the lung bases appear similar to the prior study, right side more affected than left Heart/vessels: Again noted is almost complete opacification of the right lower lobe pulmonary artery with only a thin strand of contrast-enhancement seen within within the central lumen. This appears relatively unchanged when compared to the prior CTA from October 19, 2017 and appears to be chronic. The remainder of the pulmonary arterial tree is well opacified with contrast Moderate to severe coronary artery calcifications are again noted Mediastinum/lymph nodes: Negative. Visualized upper abdomen: Negative. Bones/soft tissues: There are spondylotic changes of the thoracic spine Additional findings: None IMPRESSION: Again noted is almost complete opacification of the right lower lobe pulmonary artery with only a thi n strand of contrast enhancement seen within the central lumen. This finding is relatively unchanged when compared to October 19, 2017 and appears to be chronic. The remainder the pulmonary arterial t ree is well-opacified Atelectasis and chronic peribronchial thickening in the lung bases appears some are to the prior stud y, right side more affected than the left Report Dictated By: Asia Verde MD at 05/24/2018 5:08 PM Report E-Signed By: Asia Verde MD at 05/24/2018 5:19 PM WSN:[email or web address]
[2018-05-24 17:30] VITALS: BP 108/71
[2018-05-24] MEDS ORDERED: ENOXAPARIN 100 MG/ML SYR SC ONE (17:30)
[2018-05-24] MEDS ORDERED: LORA-1456 PO (17:32)
== END 2018-05-24 17:55 | disposition home or self-care (01) ==
LOC: ER 14:09
DX: F41.0 Panic disorder [episodic paroxysmal anxiety] (principal)
CPT/HCPCS: 71045; 71275; 82040; 82247; 82310; 82374; 82435; 82565; 82947; 83880; 84075; 84132; 84155; 84295; 84450; 84460; 84484; 84520; 85025; 85379; 85610; 85730; 93005; 96374; 96375; 99284; J1650; J2060; J3010; J7050; Q9967

== ENCOUNTER → 2018-06-01 | Outpatient (CLI) | payer MEDICARE, OTHER ==
[2016-10-10 10:21] VITALS: BMI 24.8
[~2018-06-01] MED LIST changes: +LORA-1456 PO
--- NOTE | 2018-06-01 15:02 | EKG ---
FAC[place] [facility] [place]IENT NAME: CORDELIA NEAL : [id number] MR: [id number] V: [id number] EXAM DATE: ORDERING PHYSICIAN: JOSÉ MIGUEL COLMENARES TECHNOLOGIST: ALISIA Test Reason : PRE OP Blood Pressure : / mmHG Vent. Rate : 091 BPM Atrial Rate : 091 BPM P-R Int : 192 ms QRS Dur : 108 ms QT Int : 378 ms P-R-T Axes : 060 270 074 degrees QTc Int : 464 ms Normal sinus rhythm Left axis deviation Right bundle branch block Inferior infarct , age undetermined Abnormal ECG No previous ECGs available Confirmed by JOSÉ MIGUEL COLMENARES ([id number]) on 06/01/2018 4:24:10 PM Referred By: Confirmed By:JOSÉ MIGUEL COLMENARES
[2018-06-01 15:19] LABS: PLATELET COUNT, AUTOMATED 215 K/uL (150-450)
== END ==
LOC: LAB 14:48
PROVIDERS: ATTEND Internal Medicine
DX: Z01.818 Encounter for other preprocedural examination (principal); I10 Essential (primary) hypertension; E03.9 Hypothyroidism, unspecified; I26.99 Other pulmonary embolism without acute cor pulmonale; I27.20 Pulmonary hypertension, unspecified; R94.31 Abnormal electrocardiogram [ECG] [EKG]; I45.10 Unspecified right bundle-branch block
CPT/HCPCS: 36415; 81001; 82040; 82247; 82310; 82374; 82435; 82565; 82947; 84075; 84132; 84155; 84295; 84443; 84450; 84460; 84520; 85025

== ENCOUNTER → 2018-06-03 | Outpatient (CLI) | payer MEDICARE, OTHER ==
[2016-10-10 10:21] VITALS: BMI 24.8
--- NOTE | 2018-06-03 13:29 | RADIOLOGY IMAGING REPORT ---
[place] [facility] [place] Chito Jolley : 1945 MR: [id number] V: [id number] EXAM DATE: ORDERING PHYSICIAN: JOSÉ MIGUEL COLMENARES TECHNOLOGIST: Location: [facility] - [place] Patient: Chito Jolley : 1945 Visit/Account:[id number] Date of Sevice: 06/03/2018 Diaphragm sniff test INDICATION: Right hemidiaphragm elevation, preknee surgery COMPARISON: Radiographs June 13, 2013 FINDINGS: Fluoroscopy was performed through the chest during inspiration and expiration. The right hemidiaphragm is elevated as before. Both diaphragms move appropriately inferiorly and sup eriorly with inspiration and expiration. The cardiac silhouette is normal in size. Left shoulder arthroplasty noted. No apparent pulmonary a bnormality. Fluoroscopy time 0.5 minutes. Dose area product 91.10 microGy*m2. IMPRESSION: Normal bilateral diaphragmatic motion without diaphragmatic paralysis. The right hemidiaphragm is elevated as before which represents the baseline appearance in this patien t. Report Dictated By: Mario Durán MD at 06/03/2018 1:20 PM Report E-Signed By: Mario Durán MD at 06/03/2018 1:24 PM WSN:[email or web address]
== END ==
LOC: RAD 04:53
PROVIDERS: ATTEND Internal Medicine
DX: J98.6 Disorders of diaphragm (principal)
CPT/HCPCS: 76000

== ENCOUNTER 2018-07-04 07:50 | Emergency (ER) | payer MEDICARE, OTHER ==
[2016-10-10 10:21] VITALS: Wt 84.0 kg
[~2018-07-04 07:50] MED LIST changes: -DOCU-416 PO; -HYDR-4309 PO; -WARF5TAB23 PO
[2018-07-04] MEDS ORDERED: IBUPROFEN 800 MG TAB PO ONE (08:20)
[2018-07-04] MEDS ORDERED: COLCHICINE 0.6 MG TAB PO ONE (08:20)
--- NOTE | 2018-07-04 08:36 | ER Report ---
History and Physical Time Seen By MD: 08:00 Hx. of Stated Complaint: left ankle/foot pain since yesterday. HPI/ROS CHIEF COMPLAINT: foot/ankle pain HISTORY OF PRESENT ILLNESS: Patient has reported history of gout, with last gout flare 6 months ago. He was recently taken off his allopurinol as well as other medications including Coumadin, for which he was on for remote DVT, due to anticipated left knee surgery this coming Wednesday. He reports that 2 days ago he began having left toe pain which progressed to left ankle, and has now radiated up to left calf. He states that this again similar to gout flare and has just progressed. Of note patient has been keeping left knee slightly flexed on Tylenol and feels that this pressure may have exacerbated his pain as well. Patient does not no known triggers for gout flares, however he does report eating meat and sweets frequently. Patient denies injury, fevers or chills, chest pain or shortness of breath. REVIEW OF SYSTEMS: Constitutional: No fever, no chills. Eyes: No discharge. ENT: No sore throat. Cardiovascular: No chest pain, no palpitations. Respiratory: No cough, no shortness of breath. Gastrointestinal: No abdominal pain, no vomiting. Genitourinary: No hematuria. Musculoskeletal: No back pain. Skin: No rashes. Neurological: No headache. Remainder of the 14 system rev: Yes Allergies: Coded Allergies: morphine (Unverified Adverse Reaction, Intermediate, VOMITING, 06/24/18) Home Meds Active Scripts Lorazepam (ATIVAN) 1 Mg Tablet, 1 MG PO Q8-12H PRN for ANXIETY, #30 TAB Prov:JOSÉ MIGUEL COLMENARES MD 06/01/18 Tramadol Hcl (TRAMADOL HCL) 50 Mg Tablet, 1 TAB PO QID for for chronic back pain, #120 TAB 5 Refills Prov:JOSÉ MIGUEL COLMENARES MD 05/12/18 Amlodipine Besylate (AMLODIPINE BESYLATE) 5 Mg Tablet, 1 TAB PO QDAY, #90 TAB 3 Refills Prov:JOSÉ MIGUEL COLMENARES MD 05/12/18 Lisinopril (LISINOPRIL) 20 Mg Tablet, 20 MG PO BID, #180 TAB 3 Refills Prov:JOSÉ MIGUEL COLMENARES MD 02/17/18 Pantoprazole Sodium (PANTOPRAZOLE SODIUM) 40 Mg Tablet.dr, 40 MG PO QDAY, #90 TAB.SR 3 Refills Prov:JOSÉ MIGUEL COLMENARES MD 12/22/17 Levothyroxine Sodium (LEVOTHYROXINE SODIUM) 75 Mcg Tablet, 75 MCG PO QDAY, #90 TAB 3 Refills Prov:JOSÉ MIGUEL COLMENARES MD 06/23/17 Discontinued Reported Medications Warfarin Sodium (COUMADIN) 5 Mg Tablet, 5 MG PO BID 05/24/18 Discontinued Scripts Febuxostat (ULORIC) 40 Mg Tablet, 40 MG PO QDAY, #30 TAB 11 Refills Prov:JOSÉ MIGUEL COLMENARES MD 06/01/18 Fluticasone Prop 50 Mcg Ns (FLONASE 50 MCG NS) 16 Gm [place].susp, 2 SPRAYS NS QDAY, #1 BOT 3 Refills Prov:JOSÉ MIGUEL COLMENARES MD 06/01/18 Reviewed Nurses Notes: Yes Old Medical Records Reviewed: Yes Hx Smoking: No Smoking Status: Never Smoker Exposure to Second Hand Smoke?: No Hx Substance Use Disorder: No Hx Alcohol Use: No Constitutional Vital Sign - Last 24 Hours 07/04/18 07:54 Temp 98.6 Pulse 111 Resp 18 B/P (MAP) 122/71 Pulse Ox 94 O2 Delivery Nasal Cannula Physical Exam General Appearance: The patient is alert, has no immediate need for airway protection and no signs of toxicity. Eyes: Pupils equal and round no pallor or injection. ENT, Mouth: Mucous membranes are moist. Respiratory: There are no retractions, lungs are clear to auscultation. Cardiovascular: Regular rate and rhythm. Abdomen - nondistended Neurological: alert, oriented, moves all extremities Skin: Warm and dry, no rashes. Musculoskeletal: Left lower extremity - no edema, ttp to mid calf without mass or erythema. TTP with light touch to left ankle, left great toe MTP; there is no erythema, ecchymosis, petechiae, or other exanthem DIFFERENTIAL DIAGNOSIS: After history and physical exam differential diagnosis was considered for gout, septic joint, dvt, fracture, or other emergent etiology Medical Decision Making Data Points Result Diagram: 07/04/18 0831 07/04/18 0831 Laboratory Hematology Test 07/04/18 08:31 Red Blood Count 4.76 M/uL (4.00-5.60) Mean Corpuscular Volume 90.4 fL (80.0-96.0) Mean Corpuscular Hemoglobin 30.5 pg (26.0-33.0) Mean Corpuscular Hemoglobin Concent 33.8 g/dL (32.0-36.0) Red Cell Distribution Width 15.5 % (11.5-14.5) Mean Platelet Volume 8.0 fL (7.2-11.1) Neutrophils (%) (Auto) 77.7 % (39.4-72.5) Lymphocytes (%) (Auto) 10.5 % (17.6-49.6) Monocytes (%) (Auto) 11.0 % (4.1-12.4) Eosinophils (%) (Auto) 0.2 % (0.4-6.7) Basophils (%) (Auto) 0.6 % (0.3-1.4) Nucleated RBC Relative Count (auto) 0.0 /100WBC Neutrophils # (Auto) 7.1 K/uL (2.0-7.4) Lymphocytes # (Auto) 1.0 K/uL (1.3-3.6) Monocytes # (Auto) 1.0 K/uL (0.3-1.0) Eosinophils # (Auto) 0.0 K/uL (0.0-0.5) Basophils # (Auto) 0.1 K/uL (0.0-0.1) Nucleated RBC Absolute Count (auto) 0.00 K/uL Prothrombin Time 21.5 seconds (12.0-14.4) Prothromb Time International Ratio 1.84 Activated Partial Thromboplast Time 32 seconds (23-35) Sodium Level 141 mmol/L (137-145) Potassium Level 4.3 mmol/L (3.5-5.0) Chloride Level 102 mmol/L (98-107) Carbon Dioxide Level 27 mmol/L (22-30) Blood Urea Nitrogen 32 mg/dl (9-21) Creatinine 1.40 mg/dl (0.66-1.25) Glomerular Filtration Rate Calc 49.5 Random Glucose 124 mg/dl (75-110) Calcium Level 9.2 mg/dl (8.4-10.2) Total Bilirubin 1.0 mg/dl (0.2-1.3) Aspartate Amino Transf (AST/SGOT) 33 U/L (0-35) Alanine Aminotransferase (ALT/SGPT) 28 U/L (0-56) Alkaline Phosphatase 137 U/L (0-126) Total Protein 8.3 g/dl (6.3-8.2) Albumin 4.1 g/dl (3.5-5.0) Chemistry Test 07/04/18 08:31 White Blood Count 9.2 k/uL (4.5-11.0) Red Blood Count 4.76 M/uL (4.00-5.60) Hemoglobin 14.5 g/dL (14.0-18.0) Hematocrit 43.0 % (42.0-52.0) Mean Corpuscular Volume 90.4 fL (80.0-96.0) Mean Corpuscular Hemoglobin 30.5 pg (26.0-33.0) Mean Corpuscular Hemoglobin Concent 33.8 g/dL (32.0-36.0) Red Cell Distribution Width 15.5 % (11.5-14.5) Platelet Count 216 K/uL (150-450) Mean Platelet Volume 8.0 fL (7.2-11.1) Neutrophils (%) (Auto) 77.7 % (39.4-72.5) Lymphocytes (%) (Auto) 10.5 % (17.6-49.6) Monocytes (%) (Auto) 11.0 % (4.1-12.4) Eosinophils (%) (Auto) 0.2 % (0.4-6.7) Basophils (%) (Auto) 0.6 % (0.3-1.4) Nucleated RBC Relative Count (auto) 0.0 /100WBC Neutrophils # (Auto) 7.1 K/uL (2.0-7.4) Lymphocytes # (Auto) 1.0 K/uL (1.3-3.6) Monocytes # (Auto) 1.0 K/uL (0.3-1.0) Eosinophils # (Auto) 0.0 K/uL (0.0-0.5) Basophils # (Auto) 0.1 K/uL (0.0-0.1) Nucleated RBC Absolute Count (auto) 0.00 K/uL Prothrombin Time 21.5 seconds (12.0-14.4) Prothromb Time International Ratio 1.84 Activated Partial Thromboplast Time 32 seconds (23-35) Glomerular Filtration Rate Calc 49.5 Calcium Level 9.2 mg/dl (8.4-10.2) Total Bilirubin 1.0 mg/dl (0.2-1.3) Aspartate Amino Transf (AST/SGOT) 33 U/L (0-35) Alanine Aminotransferase (ALT/SGPT) 28 U/L (0-56) Alkaline Phosphatase 137 U/L (0-126) Total Protein 8.3 g/dl (6.3-8.2) Albumin 4.1 g/dl (3.5-5.0) Coagulation Test 07/04/18 08:31 Prothrombin Time 21.5 seconds Prothromb Time International Ratio 1.84 Activated Partial Thromboplast Time 32 seconds ED Course/Re-evaluation ED Course Patient is a 73-year-old male who is recently been taken off his allopurinol and Coumadin well awaiting a left knee surgery. He presents with left ankle and left leg pain today. While I considered septic joint, his findings are more consistent with a gout flare. However his leg pain is also concerning for DVT. The ultrasound as discussed with radiologist appears to show an acute DVT in the left femoral vein. I discussed this with patient, primary doctor, as well as orthopedic surgeon. At this point I believe it is best to restart Coumadin and follow-up closely with primary doctor. His primary doctor agrees as called for patient for an appointment in 2 days for reevaluation. I will also restart his allopurinol as her pain medication for his gout. Given the patient's creatinine is 1.4, we'll withhold further colchicine or ibuprofen and recommend [place]. Decision to Disposition Date: Jul 04, 2018 Decision to Disposition Time: 10:30 Depart Departure Latest Vital Signs Vital Signs Date Time Temp Pulse Resp B/P (MAP) Pulse Ox O2 Delivery O2 Flow Rate FiO2 07/04/18 07:54 98.6 111 18 122/71 94 Nasal Cannula Impression: Primary Impression: DVT (deep venous thrombosis) Additional Impressions: Gout Renal insufficiency Condition: Improved Disposition: HOME OR SELF-CARE Referrals: JOSÉ MIGUEL COLMENARES MD (PCP) 2 Days New Scripts Docusate Sodium (COLACE) 100 Mg Capsule 100 MG PO BID for 7 Days, #14 CAPSULE Prov: ZEESHAN VILLAVICENCIO MD 07/04/18 Hydrocodone Bit/Acetaminophen (NORCO 5-325 TABLET) 1 Each Tablet 1 EACH PO Q6H for PAIN, #20 TAB Prov: ZEESHAN VILLAVICENCIO MD 07/04/18 Patient Instructions: Gout (ED) Additional Instructions: As we discussed, please restart her Coumadin because you appear to have a new blood clot. He may take an extra dose this evening, then continue 5 mg daily. I also recommend he restart your Allopurinol as well as take norco as I prescribed, as needed for pain. While you are taking [place], please take colace twice daily to prevent constipation. Please return for uncontrolled pain, fevers, new redness or swelling in ankle, chest pain or difficulty breathing, or any concerns. Problem Qualifiers Primary Impression: DVT (deep venous thrombosis) DVT location: lower extremity Affected thrombotic vein of extremity: femoral Chronicity: acute Laterality: left Qualified Codes: I82.412 - Acute embolism and thrombosis of left femoral vein Additional Impressions: Gout Gout site: ankle Gout etiology: unspecified cause Chronicity: acute Laterality: left Qualified Codes: M10.9 - Gout, unspecified ZEESHAN VILLAVICENCIO MD Jul 04, 2018 08:36
[2018-07-04 08:37] LABS: PLATELET COUNT, AUTOMATED 216 K/uL (150-450)
[2018-07-04 08:46] LABS: INR 1.84
[2018-07-04] MEDS ORDERED: fentaNYL CITR 100 MCG/2 ML AMP IVP ONE (09:25)
--- NOTE | 2018-07-04 09:51 | RADIOLOGY IMAGING REPORT ---
FACILITY: [facility] PATIENT NAME: Chito Jolley : 1945 MR: [id number] V: [id number] EXAM DATE: ORDERING PHYSICIAN: ZEESHAN VILLAVICENCIO TECHNOLOGIST: Location: [facility] - [place] Patient: Chito Jolley : 1945 Visit/Account:[id number] Date of Sevice: 07/04/2018 Venous Doppler ultrasound left lower extremity Indication: Left calf pain. Comparison: None Available Findings: Duplex Doppler and color flow imaging was performed. The common femoral vein is patent. Th ere is thrombus noted throughout the entirety of the femoral vein. Noncompressibility of this respect nu segment is noted. The left popliteal vein, posterior tibial vein and peroneal veins are patent. C olor-flow over lies the respective patent segments. IMPRESSION: 1. Acute to subacute deep venous thrombus located throughout the entirety of the left femoral vein. Results were called to Dr. ZEESHAN VILLAVICENCIO at 07/04/2018 9:46 AM. Report Dictated By: Titus Benoit DO at 07/04/2018 9:37 AM Report E-Signed By: Titus Benoit DO at 07/04/2018 9:46 AM WSN:[id number]
[2018-07-04] MEDS ORDERED: WARFARIN SOD 5 MG TAB PO ONE (10:05)
[2018-07-04 10:30] VITALS: BP 124/76
[2018-07-04] MEDS ORDERED: DOCU-416 PO (10:33)
[2018-07-04] MEDS ORDERED: HYDR-4309 PO (10:33)
[2018-07-04] MEDS ORDERED: NITROGLYCERIN 0.4 MG SUBL SL ONE (16:25)
== END 2018-07-04 10:45 | disposition home or self-care (01) ==
LOC: ER 08:01
DX: I82.412 Acute embolism and thrombosis of left femoral vein (principal); M10.9 Gout, unspecified; N18.9 Chronic kidney disease, unspecified
CPT/HCPCS: 36415; 85025; 85610; 85730; 93971; 96374; 99284; A9270; J3010; 82040; 82247; 82310; 82374; 82435; 82565; 82947; 84075; 84132; 84155; 84295; 84450; 84460; 84520

== ENCOUNTER → 2018-07-04 | Outpatient (CLI) | payer MEDICARE, OTHER ==
[2016-10-10 10:21] VITALS: BMI 24.8
[~2018-07-04] MED LIST changes: +AMLO-111 PO; +AMLO-113 PO; -AMLO-96 PO; -AMLO-99 PO; +DOCU-416 PO; +HYDR-4309 PO; +WARF5TAB23 PO
== END ==
LOC: AMB 07:27
PROVIDERS: ATTEND Nurse Practitioner
DX: M79.662 Pain in left lower leg (principal); R09.02 Hypoxemia
CPT/HCPCS: A0425; A0427

== ENCOUNTER → 2018-07-07 | Outpatient (CLI) | payer MEDICARE, OTHER ==
[2016-10-10 10:21] VITALS: BMI 24.8
[~2018-07-07] MED LIST changes: +DOCU-416 PO; +HYDR-4309 PO
[2018-07-07 09:14] LABS: INR 1.73
== END ==
LOC: LAB 08:43
PROVIDERS: ATTEND Internal Medicine
DX: E03.9 Hypothyroidism, unspecified (principal); I10 Essential (primary) hypertension; M10.9 Gout, unspecified; I82.409 Acute embolism and thrombosis of unspecified deep veins of unspecified lower extremity
CPT/HCPCS: 36415; 82040; 82247; 82310; 82374; 82435; 82565; 82947; 84075; 84132; 84155; 84295; 84450; 84460; 84520; 85610

== ENCOUNTER → 2018-07-11 | Outpatient (CLI) | payer MEDICARE, OTHER ==
[2016-10-10 10:21] VITALS: BMI 24.8
[2018-07-11 10:03] LABS: INR 2.18
== END ==
LOC: LAB 09:22
PROVIDERS: ATTEND Internal Medicine
DX: N18.9 Chronic kidney disease, unspecified (principal); I82.409 Acute embolism and thrombosis of unspecified deep veins of unspecified lower extremity
CPT/HCPCS: 36415; 81001; 85610

== ENCOUNTER → 2018-07-11 | Outpatient (CLI) | payer MEDICARE, OTHER ==
[2016-10-10 10:21] VITALS: BMI 24.8
--- NOTE | 2018-07-11 10:14 | RADIOLOGY IMAGING REPORT ---
FACILITY: [facility] [place] PATIENT NAME: Chito Jolley : 1945 MR: [id number] V: [id number] EXAM DATE: ORDERING PHYSICIAN: JOSÉ MIGUEL COLMENARES TECHNOLOGIST: Location: [facility] - [place] Patient: Chito Jolley : 1945 Visit/Account:[id number] Date of Sevice: 07/11/2018 KIDNEYS HISTORY: elevated Creatinine COMPARISON: Abdominal ultrasound from 11/25/2014 FINDINGS: Kidneys: Right kidney- 10.1 x 5.4 x 5.1 cm. No hydronephrosis. No cortical mass lesions. No cortical thinni ng.. Left kidney- 11.2 x 7.4 x 4.9 cm. No hydronephrosis. No cortical mass lesions. Uniform and symmetric blood flow in each kidney by Doppler ultrasound. Hydronephrosis: none. Bladder: 80 mL prevoid. 30 mL post void. Bilateral ureteral jets identified. No bladder mass lesio n identified.. Abdominal aorta and IVC: patent by Doppler ultrasound. IMPRESSION: One. Negative ultrasound for acute pathology. Specifically no hydronephrosis noted within either ki dney. No appreciable change in overall ultrasonographic appearance of the kidneys when compared to a study from 2015. Report Dictated By: Jt Santillan MD at 07/11/2018 10:05 AM Report E-Signed By: Jt Santillan MD at 07/11/2018 10:10 AM WSN:[email or web address]
== END ==
LOC: US 01:01
PROVIDERS: ATTEND Internal Medicine
DX: N18.9 Chronic kidney disease, unspecified (principal); R79.89 Other specified abnormal findings of blood chemistry
CPT/HCPCS: 76705

== ENCOUNTER 2018-07-13 19:03 | Emergency (ER) | payer MEDICARE, OTHER ==
[2016-10-10 10:21] VITALS: Wt 83.9 kg
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
[2018-07-13] MEDS ORDERED: WARF5TAB23 PO (19:14)
[2018-07-13] MEDS ORDERED: NS(*) 0.9% 1000 ML BAG 1,000 ML IV ONE (19:16)
[2018-07-13] MEDS ORDERED: fentaNYL CITR 100 MCG/2 ML AMP IVP ONE ×2 (19:20→20:00)
[2018-07-13] MEDS ORDERED: ONDANSETRON 4 MG/2 ML VIAL IVP ONE (19:20)
[2018-07-13 19:24] LABS: PLATELET COUNT, AUTOMATED 213 K/uL (150-450)
[2018-07-13 19:43] LABS: INR 2.73
[2018-07-13] MEDS ORDERED: IOPAMIDOL 76% 75 ML INFUS BTL 75 ML ONE (19:56)
[2018-07-13 20:30] VITALS: BP 125/80
--- NOTE | 2018-07-13 20:34 | RADIOLOGY IMAGING REPORT ---
[place] [facility] [place] NAME[place] Chito Jolley : 1945 MR: [id number] V: [id number] EXAM DATE: ORDERING PHYSICIAN: CHANELLE ART TECHNOLOGIST: Location: [facility] [place] Patient: Chito Jolley : 1945 Visit/Account:[id number] Date of Sevice: 07/13/2018 CT abdomen and pelvis with IV contrast Indication: Abdominal pain. Comparison: 03/08/2017.. Technique: Axial CT images were obtained through the abdomen and pelvis during injection of nonioni c iodinated intravenous contrast. Reformatted coronal and sagittal images were also obtained. One of the following dose optimization techniques was utilized in the performance of this exam: Autom ated exposure control; adjustment of the mA and/or kV according to the patient's size; or use of an i terative reconstruction technique. Specific details can be referenced in the facility's radiology C T exam operational policy. Contrast: 75 ml of Isovue-370 IV contrast. Findings: Lower lung dumont: Right basilar atelectasis. Otherwise clear. Liver: No focal parenchymal abnormality of the liver. Biliary: Gallbladder appears unremarkable as well as the intra and extra hepatic biliary system. Pancreas: Normal appearance. Spleen: Normal appearance. Adrenal glands: Unremarkable. Kidneys / retroperitoneum: No evidence of nephrolithiasis or hydronephrosis. No focal normality. Bowel / peritoneum / mesenteries: Diverticula seen along the sigmoid colon without discrete indicatio n of surrounding inflammation. The colon shows no other focal abnormality. The appendix is not defi nitely visualized may been surgically removed. The central low small bowel does show mild wall enhan cement surrounding inflammatory changes with some mild prominent loops however no discrete indication of obstruction. This is similar to the previous examination although the enhancement and inflammati on is mildly worse. The remaining small bowel shows no focal abnormality or obstruction. The stomac h shows no focal abnormality. No free air, free fluid, fluid collections or areas of inflammation otherwise seen. Lymph node assessment: No pathologic adenopathy identified. Pelvic structures: Appear unremarkable. Vessels: Abdominal aorta does show tortuosity with atherosclerotic calcific changes. No aneurysm or dissection. There is persistent aneurysmal dilatation of the left iliac artery measuring up to 2.5 c m which is not significantly changed. There is peripheral thrombus and calcifications however there is a patent lumen. Musculoskeletal / Body wall: No acute or aggressive osseous abnormality. Degenerative changes of spi ne. Small varices again seen along the low anterior and left subcutaneous fat. IMPRESSION: 1. The central low small bowel does show abnormal enhancement and surrounding inflammatory changes p resent mild prominence of the small bowel in this region however no indication of obstruction at this time. These findings would be consistent with acute enteritis, nonspecific. 2. Sigmoid diverticulosis without radiographic indication diverticulitis. 3. Mild right lower lobe atelectasis. 4. Other stable chronic findings as above. Report Dictated By: Nilson Richardson at 07/13/2018 8:23 PM Report E-Signed By: Nilson Richardson at 07/13/2018 8:31 PM [id number]
[2018-07-13] MEDS ORDERED: ONDANSETRON 4 MG ODT TH SL ONE (21:00)
[2018-07-13] MEDS ORDERED: ACET/HYDROC 5/325MG TH ER ONLY 2 TAB/BOTTLE PO ONE (21:00)
[2018-07-13] MEDS ORDERED: HYDR-4309 PO (21:02)
[2018-07-13] MEDS ORDERED: ONDA4TAB PO (21:02)
== END 2018-07-13 21:16 | disposition home or self-care (01) ==
LOC: ER 19:42
DX: K52.9 Noninfective gastroenteritis and colitis, unspecified (principal); R10.11 Right upper quadrant pain
CPT/HCPCS: 74177; 81001; 82150; 83690; 85025; 85610; 85730; 96361; 96374; 96375; 99284; J2405; J3010; J7030; Q0162; Q9967; 82040; 82247; 82310; 82374; 82435; 82565; 82947; 84075; 84132; 84155; 84295; 84450; 84460; 84520; S0119

== ENCOUNTER → 2018-07-15 | Outpatient (CLI) | payer MEDICARE, OTHER ==
[2016-10-10 10:21] VITALS: BMI 24.8
[~2018-07-15] MED LIST changes: +WARF5TAB23 PO
[2018-07-15 10:41] LABS: INR 2.52
== END ==
LOC: LAB 09:33
PROVIDERS: ATTEND Internal Medicine
DX: I82.409 Acute embolism and thrombosis of unspecified deep veins of unspecified lower extremity (principal); N18.9 Chronic kidney disease, unspecified
CPT/HCPCS: 82310; 82374; 82435; 82565; 82947; 84132; 84295; 84520; 85610

== ENCOUNTER → 2018-07-21 | Outpatient (CLI) | payer MEDICARE, OTHER ==
[2016-10-10 10:21] VITALS: BMI 24.8
[~2018-07-21] MED LIST changes: -HYDR-4309 PO; +HYDR-653 PO
[2018-07-21 09:55] LABS: INR 4.23
== END ==
LOC: LAB 09:15
PROVIDERS: ATTEND Internal Medicine
DX: I82.409 Acute embolism and thrombosis of unspecified deep veins of unspecified lower extremity (principal); I26.99 Other pulmonary embolism without acute cor pulmonale
CPT/HCPCS: 36415; 85610

== ENCOUNTER 2018-08-06 22:03 | Observation (INO) | payer MEDICARE, OTHER ==
[~2018-08-06] VITALS: Ht 172.7 cm; Wt 83.3 kg
[~2018-08-06 22:03] MED LIST changes: +FLU180SY11 IM
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
[2018-08-06] MEDS ORDERED: NS(*) 0.9% 1000 ML BAG 1,000 ML IV ONE (22:11)
[2018-08-06] MEDS ORDERED: ONDANSETRON 4 MG/2 ML VIAL IVP ONE (22:15)
[2018-08-06] MEDS ORDERED: LR(*) 1000 ML BAG 1,000 ML IV PRN (22:15)
[2018-08-06] MEDS ORDERED: PROMETHAZINE 25 MG/ML 1 ML AMP IVP ONE (22:15)
[2018-08-06] MEDS ORDERED: fentaNYL CITR 100 MCG/2 ML AMP IVP ONE (22:15)
[2018-08-06] MEDS ORDERED: IOPAMIDOL 76% 75 ML INFUS BTL 75 ML ONE (22:23)
[2018-08-06 22:25] LABS: PLATELET COUNT, AUTOMATED 267 K/uL (150-450)
[2018-08-06] MEDS ORDERED: HYDROMORPHONE HCL 1 MG/ML SYRINGE IVP ONE (23:15)
--- NOTE | 2018-08-06 23:50 | RADIOLOGY IMAGING REPORT ---
FACILITY: [facility] PATIENT NAME: Chito Jolley : 1945 MR: [id number] V: [id number] EXAM DATE: ORDERING PHYSICIAN: CHANELLE ART TECHNOLOGIST: Location: [facility] Patient: Chito Jolley : 1945 Visit/Account:[id number] Date of Sevice: 08/06/2018 EXAMINATION: CT abdomen and pelvis with IV contrast HISTORY: Vomiting. Abdominal pain. History of SBO. TECHNIQUE: Axial CT images of the abdomen and pelvis were obtained with IV contrast, with coronal a nd sagittal 2D reconstructed images. One of the following dose optimization techniques was utilized in the performance of this exam: Autom ated exposure control; adjustment of the mA and/or kV according to the patient's size; or use of an i terative reconstruction technique. Specific details can be referenced in the facility's radiology C T exam operational policy. Contrast: 75 mL of IV Isovue-370. COMPARISON: 07/13/2018. FINDINGS: Liver: Fatty infiltration of the liver. No focal liver lesion. The hepatic veins and portal veins ar e patent. Gallbladder and bile ducts: Negative. Spleen: Negative. Pancreas: Negative. Adrenal glands: Negative. Kidneys: Negative. No hydronephrosis or urinary calculi. Bowel and peritoneum: There is dilatation of small bowel segments in the mid abdomen, measuring up t o 4 cm in diameter, with fluid levels and some fecalized small bowel content indicative of stasis. Th ere is abrupt tapered narrowing of a dilated small bowel segment in the mid abdomen, suspicious for s mall bowel obstruction. Appearance is somewhat similar to the prior examination but with a slightly g reater degree of small bowel dilatation in this region on the current exam. There is some adjacent me senteric edema and soft tissue stranding. Distal loops of small bowel are relatively decompressed, wi th a small amount of fluid and air. There has been prior bowel surgery with a patent small bowel anas tomosis along the distal ileum. The colon is relatively decompressed, with minimal colonic stool. The re are a few scattered colonic diverticula, without evidence of diverticulitis. No free fluid or free intraperitoneal air. Pelvic structures: Negative. Lymph node assessment: Negative. Vessels: Moderate vascular calcifications. Normal caliber abdominal aorta. There is stable aneurysma l dilatation of the left common iliac artery, measuring up to 2.5 cm. There is chronic occlusion of t he left external iliac vein, with superficial venous collaterals along the lower abdominal wall. Musculoskeletal: Chronic multilevel degenerative changes throughout the spine. No acute osseous fin dings. Body wall: Negative. Lung bases: Negative. IMPRESSION: 1. There is dilatation of small bowel segments in the mid abdomen, measuring up to 4 cm, with abrupt tapered narrowing along the central mesentery. Appearance is suspicious for small bowel obstruction. Relatively similar appearance to the prior examination. There is some adjacent nonspecific mesenteric edema and soft tissue stranding. 2. No other acute intra-abdominal findings. 3. Prior bowel surgery with a patent distal ileal anastomosis. The colon is relatively decompressed. 4. Colonic diverticulosis. 5. Hepatic steatosis. Report Dictated By: Josh Kong MD at 08/06/2018 11:34 PM Report E-Signed By: Josh Kong MD at 08/06/2018 11:46 PM WSN:[id number]
[2018-08-07] VITALS (7 sets, daily range): BP systolic 113–156; BP diastolic 69–92; Ht 172.7 cm; Wt 83.3 kg
[2018-08-07] MEDS ORDERED: TRAM-420 PO (00:30)
[2018-08-07] MEDS ORDERED: fentaNYL CITR 100 MCG/2 ML AMP IVP ONE (00:30)
[2018-08-07] MEDS ORDERED: DOCU-416 PO (00:30)
[2018-08-07] MEDS: KCL/D1/2NS 20 MEQ 1000 ML 1,000 ML IV PRN ×3 (01:17→19:08)
[2018-08-07] MEDS: ACETAMINOPHEN(*)1000 MG/100 ML 100 ML IVPB SCH ×3 (01:21→17:36)
--- NOTE | 2018-08-07 01:22 | Gen Surgery History & Physical ---
History of Present Illness Chief Complaint Abdmonial distention, pain, N/V History of Present Illness Mr. Jolley is a 73yo male presents with abdominal pain since early this morning. He began vomiting this evening. Complains of central lower abdominal pain where his previous bowel obstructions have been. Denies chest pain, shortness of breath, fever, chills or dysuria. Patient was seen approximately 3 weeks ago and had a CT scan of his abdomen and pelvis at that time. The CT scan showed an ileus. He last had an obstruction requiring admission in 2016 and states that he has been having one about every year up to that point. He states that he was eating some celery sticks prior to this visit. He has not had any fevers or chills. History Problems: (1) Osteoarthritis Status: Acute (2) Hyperlipidemia Status: Acute (3) Small bowel obstruction due to adhesions Status: Acute (4) Aortic stenosis (5) Pulmonary hypertension (6) Anxiety and depression (7) Renal insufficiency Status: Acute (8) Gout (9) DVT (deep venous thrombosis) (10) Hypertension, benign Status: Chronic (11) Chronic kidney disease (12) S/p reverse total shoulder arthroplasty Status: Acute Home Meds Active Scripts Hydrocodone Bit/Acetaminophen (NORCO 5-325 TABLET) 1 Each Tablet, 1 EACH PO Q4H PRN for PAIN, #12 TAB Prov:CHANELLE ART DO 07/13/18 Ondansetron (ZOFRAN ODT) 4 Mg Tab.rapdis, 4 MG PO every 6 hours PRN for NAUSEA/VOMITING, #10 TAB TAKE 1 TABLET BY MOUTH EVERY 12 HOURS Prov:CHANELLE ART DO 07/13/18 Febuxostat (ULORIC) 40 Mg Tablet, 40 MG PO QDAY, #30 TAB 11 Refills Prov:JOSÉ MIGUEL COLMENARES MD 07/07/18 Lorazepam (ATIVAN) 1 Mg Tablet, 1 MG PO Q8-12H PRN for ANXIETY, #30 TAB Prov:JOSÉ MIGUEL COLMENARES MD 06/01/18 Amlodipine Besylate (AMLODIPINE BESYLATE) 5 Mg Tablet, 1 TAB PO QDAY, #90 TAB 3 Refills Prov:JOSÉ MIGUEL COLMENARES MD 05/12/18 Lisinopril (LISINOPRIL) 20 Mg Tablet, 20 MG PO BID, #180 TAB 3 Refills Prov:JOSÉ MIGUEL COLMENARES MD 02/17/18 Pantoprazole Sodium (PANTOPRAZOLE SODIUM) 40 Mg Tablet.dr, 40 MG PO QDAY, #90 TAB.SR 3 Refills Prov:JOSÉ MIGUEL COLMENARES MD 12/22/17 Levothyroxine Sodium (LEVOTHYROXINE SODIUM) 75 Mcg Tablet, 75 MCG PO QDAY, #90 TAB 3 Refills Prov:JOSÉ MIGUEL COLMENARES MD 06/23/17 Reported Medications Tramadol Hcl (TRAMADOL HCL) 50 Mg Tablet, 100 MG PO BID, TAB 08/07/18 Docusate Sodium (COLACE) 100 Mg Capsule, 100 MG PO PRN, CAPSULE 08/07/18 Warfarin Sodium (WARFARIN SODIUM) 5 Mg Tablet, 7.5 MG PO M,W,F, TAB 07/13/18 Colchicine (COLCRYS) 0.6 Mg Tablet, 0.6 MG PO BID PRN for FOR GOUT ATTACK 07/07/18 Warfarin Sodium (COUMADIN) 5 Mg Tablet, 5 MG PO SUN,TUE,THURS,SAT 07/07/18 Discontinued Scripts Docusate Sodium (COLACE) 100 Mg Capsule, 100 MG PO BID for 7 Days, #14 CAPSULE Prov:ZEESHAN VILLAVICENCIO MD 07/04/18 Tramadol Hcl (TRAMADOL HCL) 50 Mg Tablet, 1 TAB PO QID for for chronic back pain , #120 TAB 5 Refills Prov:JOSÉ MIGUEL COLMENARES MD 05/12/18 Allergies: Coded Allergies: morphine (Unverified Adverse Reaction, Intermediate, VOMITING, 08/06/18) Patient History: FH: CVA (cerebrovascular accident) MOTHER, , Age:75 FH: cancer FATHER, , Age:66 FH: dementia FATHER, , Age:66 SISTER, Age:65, Onset:56 FH: diabetes mellitus FATHER, , Age:66 BROTHER, SISTER SISTER FH: kidney failure BROTHER, Review of Systems All Systems Reviewed/Normal: Yes, Except as Noted Constitutional: No Fever Gastrointestinal: Nausea, Vomiting, Abdominal Pain Exam General Appearance: Alert, Awake, No Acute Distress Eyes: PERRLA ENT: Normal Cardiovascular: Normal Rhythm & Peripheral Pulses Respiratory: No Respiratory Distress GI: Other (distended, tender lower midline) Musculoskeletal: No Weakness/Pain Extremities: Soft and Non Tender Integumentary: Skin Intact without Lesion / Mass Psych: Alert & Oriented X3, Appropriate Mood & Affect Medical Decision Making Data Points Result Diagram: 08/06/18221608/06/182216 Assessment and Plan Problems: (1) Small bowel obstruction due to adhesions Status: Acute Assessment & Plan: 08/07/2018: Small bowel obstruction confirmed by CT. An NGT will be placed in the ED. SBFT in the am. I discussed the findings and plan with the patient and his children. They expressed their understanding and gave consent to proceed. 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 Venous Thromboembolism VTE Risk Physician Assess for VTE Risk: Yes Patient's VTE Risk: High VTE Diagnostic Test 2 Days Prior to Admit: No Antithrombotics Is Pt On Any Antithrombotics?: Yes BARBRA TAYLOR MD Aug 07, 2018 01:15
--- NOTE | 2018-08-07 02:34 | RADIOLOGY IMAGING REPORT ---
FACILITY: [facility] [place] PATIENT NAME: Chito Jolley : 1945 MR: [id number] V: [id number] EXAM DATE: ORDERING PHYSICIAN: BARBRA TAYLOR [place]CHNOLOG[place]: [place] [facility] [place] Chito J[place] : 1945 Visit/Account:[id number] Date of Sevice: 08/07/2018 EXAMINATION: Portable AP Chest HISTORY: NGT placement COMPARISON: 05/24/2018. FINDINGS: NG tube present. The distal tube is suboptimally visualized due to technique but likely terminates ne ar the GE junction. Stable chronic elevation of the right hemidiaphragm. Mild scarring or atelectasis in the lung bases. No suspicious focal consolidation. No pleural effusion or pneumothorax. Normal cardiomediastinal silhouette. Aortic calcification. No acute osseous findings. Partially visualized left shoulder arthroplasty. IMPRESSION: 1. The distal NG tube is poorly visualized but likely terminates near the GE junction. A follow-up ab dominal radiograph may allow for better visualization of the tip of the NG tube. 2. Mild scarring or atelectasis in the lung bases, with stable chronic elevation of the right hemidia phragm. Report Dictated By: Josh Kong MD at 08/07/2018 2:27 AM Report E-Signed By: Josh Kong MD at 08/07/2018 2:30 AM WSN:[id number]
[2018-08-07] MEDS: fentaNYL CITR 100 MCG/2 ML AMP IVP PRN ×7 (03:05→22:57)
[2018-08-07] MEDS: ONDANSETRON 4 MG/2 ML VIAL IVP PRN ×4 (03:45→18:24)
--- NOTE | 2018-08-07 04:35 | RADIOLOGY IMAGING REPORT ---
[place] [facility] [place] Chito Jol[place] : 1945 MR: [id number] V: [id number] EXAM DATE: ORDERING PHYSICIAN: BARBRA TAYLOR TECHNOLOGIST: Location: [facility] [place] Patient: Chito Jolley : 1945 Visit/Account:[id number] Date of Sevice: 08/07/2018 CHEST SINGLE AP 08/07/2018 04:06 hours. HISTORY: NG tube advancement. Check position. COMPARISON: Earlier same day at 0206 hours and studies dating to 07/04/2006. TECHNIQUE: Portable AP view of the chest. FINDINGS: Tubes/lines/hardware: NG tube terminates in the right upper quadrant, in the expected location of the body of the stomach. There is a left shoulder arthroplasty. Pulmonary: There is mild right hemidiaphragm elevation with adjacent mild atelectasis or scarring, un changed. Left lung is clear. There is no pneumothorax or pleural effusion. Cardiomediastinal: Cardiac and mediastinal silhouettes are within normal limits. There is mild aortic calcification. Bones/soft tissues: No acute osseous abnormality. The visible abdomen is normal. IMPRESSION: 1. NG tube has been advanced with tip terminates in the right upper quadrant, in the expected locatio n of the gastric body. 2. Mild right basilar atelectasis versus scarring adjacent to the elevated right hemidiaphragm, uncha nged. Report Dictated By: Jessica Hernández at 08/07/2018 4:27 AM Report E-Signed By: Jessica Hernández at 08/07/2018 4:31 AM WSN:[id number]
[2018-08-07 06:32] LABS: PLATELET COUNT, AUTOMATED 200 K/uL (150-450)
[2018-08-07 06:38] LABS: INR 2.23
[2018-08-07] MEDS ORDERED: PANTOPRAZOLE SOD(*)40 MG VIAL 40 MG in NS(*) 0.9% 100 ML BAG 100 ML IVPB SCH (09:00)
[2018-08-07] MEDS ORDERED: LEVOTHYROXINE SOD 100 MCG VIAL IVP SCH (09:00)
[2018-08-07] MEDS: PANTOPRAZOLE SOD 40 MG IV VIAL IVP SCH (10:08)
[2018-08-07] MEDS: LEVOTHYROXINE SOD 100 MCG VIAL IVP SCH (10:09)
[2018-08-07] MEDS: amLODIPine BESYL(*) 5 MG TAB PO SCH (10:10)
[2018-08-07] MEDS: LISINOPRIL 20 MG TAB PO SCH ×2 (10:10→20:44)
[2018-08-07] MEDS: ENOXAPARIN 100 MG/ML SYR SC SCH ×2 (10:10→20:43)
--- NOTE | 2018-08-07 10:14 | General Surgery Progress Note ---
Subjective Progress Notes Subjective Better but not resolved. Physical Exam Vital Signs Date Time Temp Pulse Resp B/P (MAP) Pulse Ox O2 Delivery O2 Flow Rate FiO2 08/07/18 07:34 98.4 83 22 120/70 (87) 91 Nasal Cannula 3.0 Intake and Output 08/07/18 07:00 Intake Total 1020 ml Output Total 800 ml Balance 220 ml Intake IV Total 1000 ml Tube Feeding 20 ml Output Gastric Drainage Total 800 ml # Voids 1 General Appearance: Alert, Awake, No Acute Distress GI: Soft and Non-Tender (sore but improved from last pm) Extremities: Soft and Non Tender Psych: Alert & Oriented X3, Appropriate Mood & Affect Result Diagram: 08/07/1862108/07/18621 Assessment and Plan Problems: (1) Small bowel obstruction due to adhesions Status: Acute Assessment & Plan: 08/07/2018: Small bowel obstruction confirmed by CT. An NGT will be placed in the ED. SBFT in the am. I discussed the findings and plan with the patient and his children. They expressed their understanding and gave consent to proceed. 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 08/08/2018: SBO persists. SBFT today. Time Spent: < 30 min Exam Sepsis Risk: No Definite Risk BARBRA TAYLOR MD Aug 07, 2018 10:14
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
[2018-08-08] MEDS: ACETAMINOPHEN(*)1000 MG/100 ML 100 ML IVPB SCH ×2 (00:33→09:01)
[2018-08-08 03:28] VITALS: BP 118/78
[2018-08-08] MEDS: fentaNYL CITR 100 MCG/2 ML AMP IVP PRN ×5 (03:51→11:49)
[2018-08-08] MEDS: KCL/D1/2NS 20 MEQ 1000 ML 1,000 ML IV PRN (05:39)
[2018-08-08 07:17] VITALS: BP 117/81
[2018-08-08] MEDS ORDERED: DIATRIZOATE MEGL/DIATRIZOA SOD 120 ML SOLN PO ONE (08:13)
[2018-08-08] MEDS: LEVOTHYROXINE SOD 100 MCG VIAL IVP SCH (09:07)
[2018-08-08] MEDS: PANTOPRAZOLE SOD 40 MG IV VIAL IVP SCH (09:12)
[2018-08-08] MEDS: LISINOPRIL 20 MG TAB PO SCH (09:17)
[2018-08-08] MEDS: ENOXAPARIN 100 MG/ML SYR SC SCH (09:17)
[2018-08-08] MEDS: amLODIPine BESYL(*) 5 MG TAB PO SCH (09:17)
--- NOTE | 2018-08-08 10:48 | Hospitalist Depart ---
Discharge Summary Reason for Hosp/Final Diag: (1) Small bowel obstruction due to adhesions Status: Acute Hospital Course & Plan: 08/07/2018: Small bowel obstruction confirmed by CT. An NGT will be placed in the ED. SBFT in the am. I discussed the findings and plan with the patient and his children. They expressed their understanding and gave consent to proceed. Continue therapeutic lovenox for his history of DVT /PE. 08/08/2018: SBO persists. SBFT today. 1045am - Contrast through colon within 1 hr. Discharge to home. Follow-up as needed. Counseled to avoid large pieces of raw vegetables/fruits, nuts and steak. Departure Weight (Pounds): 183 Weight (Ounces): 12.0 Result Diagram: 08/07/1862108/07/18621 Condition: Improved Discharge: Home Discharge Code Status: Full Code Time Spent: < 30 min Discharge Instructions Home Meds Active Scripts Hydrocodone Bit/Acetaminophen (NORCO 5-325 TABLET) 1 Each Tablet, 1 EACH PO Q4H PRN for PAIN, #12 TAB Prov:CHANELLE ART DO 07/13/18 Ondansetron (ZOFRAN ODT) 4 Mg Tab.rapdis, 4 MG PO every 6 hours PRN for NAUSEA/VOMITING, #10 TAB TAKE 1 TABLET BY MOUTH EVERY 12 HOURS Prov:CHANELLE ART DO 07/13/18 Febuxostat (ULORIC) 40 Mg Tablet, 40 MG PO QDAY, #30 TAB 11 Refills Prov:JOSÉ MIGUEL COLMENARES MD 07/07/18 Lorazepam (ATIVAN) 1 Mg Tablet, 1 MG PO Q8-12H PRN for ANXIETY, #30 TAB Prov:JOSÉ MIGUEL COLMENARES MD 06/01/18 Amlodipine Besylate (AMLODIPINE BESYLATE) 5 Mg Tablet, 1 TAB PO QDAY, #90 TAB 3 Refills Prov:JOSÉ MIGUEL COLMENARES MD 05/12/18 Lisinopril (LISINOPRIL) 20 Mg Tablet, 20 MG PO BID, #180 TAB 3 Refills Prov:JOSÉ MIGUEL COLMENARES MD 02/17/18 Pantoprazole Sodium (PANTOPRAZOLE SODIUM) 40 Mg Tablet.dr, 40 MG PO QDAY, #90 TAB.SR 3 Refills Prov:JOSÉ MIGUEL COLMENARES MD 12/22/17 Levothyroxine Sodium (LEVOTHYROXINE SODIUM) 75 Mcg Tablet, 75 MCG PO QDAY, #90 TAB 3 Refills Prov:JOSÉ MIGUEL COLMENARES MD 06/23/17 Reported Medications Tramadol Hcl (TRAMADOL HCL) 50 Mg Tablet, 100 MG PO BID, TAB 08/07/18 Docusate Sodium (COLACE) 100 Mg Capsule, 100 MG PO PRN, CAPSULE 08/07/18 Warfarin Sodium (WARFARIN SODIUM) 5 Mg Tablet, 7.5 MG PO MCNAIR,WE, TAB 07/13/18 Colchicine (COLCRYS) 0.6 Mg Tablet, 0.6 MG PO BID PRN for FOR GOUT ATTACK 07/07/18 Warfarin Sodium (COUMADIN) 5 Mg Tablet, 5 MG PO MON,TUE,THUR,FRI,SAT 07/07/18 Discontinued Scripts Docusate Sodium (COLACE) 100 Mg Capsule, 100 MG PO BID for 7 Days, #14 CAPSULE Prov:ZEESHAN VILLAVICENCIO MD 07/04/18 Tramadol Hcl (TRAMADOL HCL) 50 Mg Tablet, 1 TAB PO QID for for chronic back pain, #120 TAB 5 Refills Prov:JOSÉ MIGUEL COLMENARES MD 05/12/18 Diet: Regular Activity: As Tolerated Venous Thromboembolism Antithrombotics Is Pt On Any Antithrombotics?: Yes BARBRA TAYLOR MD Aug 08, 2018 10:48
--- NOTE | 2018-08-08 11:14 | RADIOLOGY IMAGING REPORT ---
FACILITY: [facility] PATIENT NAME: Chito Jolley : 1945 MR: [id number] V: [id number] EXAM DATE: ORDERING PHYSICIAN: BARBRA TAYLOR TECHNOLOGIST: Location: [facility] Patient: Chito Jolley : 1945 Visit/Account:[id number] Date of Sevice: 08/07/2018 SMALL BOWEL SERIES Indication: Small Bowel Obstruction Comparison: None. Findings: On the sonoscope operator image, normal bowel gas pattern is seen. A small bowel follow-through was then performed, after the placement of Gastrografin in the nasogastr ic tube. Contrast is seen in the colon at 1 hour. IMPRESSION: Normal small bowel follow-through. Report Dictated By: Dada Lopez at 08/08/2018 11:06 AM Report E-Signed By: Dada Lopez at 08/08/2018 11:09 AM WSN:[email or web address]
[2018-08-08 11:33] VITALS: BP 114/78
== END 2018-08-08 10:45 | disposition home or self-care (01) ==
LOC: ER 22:20 → MED 08-07 01:17 → INTOOBSV 08-07 01:17
PROVIDERS: ADMIT Surgery; ATTEND Surgery
DX: K56.50 Intestinal adhesions [bands], unspecified as to partial versus complete obstruction (principal); K21.9 Gastro-esophageal reflux disease without esophagitis; I12.9 Hypertensive chronic kidney disease with stage 1 through stage 4 chronic kidney disease, or unspecified chronic kidney disease; N18.9 Chronic kidney disease, unspecified; F41.8 Other specified anxiety disorders; E03.9 Hypothyroidism, unspecified; E78.5 Hyperlipidemia, unspecified; I27.20 Pulmonary hypertension, unspecified; M1A.9XX0 Chronic gout, unspecified, without tophus (tophi); Z88.5 Allergy status to narcotic agent
CPT/HCPCS: 36415; 71045; 74177; 74250; 81001; 82150; 83690; 85025; 85610; 99284; A9270; C9113; G0378; J0131; J1170; J1650; J2405; J2550; J3010; J3480; J7030; Q9967; 82040; 82247; 82310; 82374; 82435; 82565; 82947; 84075; 84132; 84155; 84295; 84450; 84460; 84520; 96365; 96367; 96375; 96376

== ENCOUNTER → 2018-09-14 | Outpatient (CLI) | payer MEDICARE, OTHER ==
[2018-08-07 14:26] VITALS: BMI 27.8
[~2018-09-14] MED LIST changes: +FOLI-68 PO; +VITA1CAP46 PO
--- NOTE | 2018-09-14 11:10 | EKG ---
FACILITY: [facility] [place] PATIENT NAME: CORDELIA NEAL : [id number] MR: [id number] V: [id number] EXAM DATE: ORDERING PHYSICIAN: JOSÉ MIGUEL COLMENARES TECHNOLOGIST: SONYA Palm Reason : PRE-OP Blood Pressure : / mmHG Vent. Rate : 083 BPM Atrial Rate : 083 BPM P-R Int : 220 ms QRS Dur : 104 ms QT Int : 386 ms P-R-T Axes : 045 -70 068 degrees QTc Int : 453 ms Sinus rhythm with 1st degree AV block Left axis deviation Inferior-posterior infarct (cited on or before 01-JUN-2018) Abnormal ECG When compared with ECG of 01-JUN-2018 13:51, Right bundle branch block is no longer present Confirmed by JOSÉ MIGUEL COLMENARES ([id number]) on 09/20/2018 4:21:08 PM Referred By: CHERRY Confirmed By:JOSÉ MIGUEL COLMENARES
[2018-09-14 11:47] LABS: PLATELET COUNT, AUTOMATED 213 K/uL (150-450)
[2018-09-14 11:58] LABS: INR 2.36
== END ==
LOC: LAB 10:51
PROVIDERS: ATTEND Internal Medicine
DX: Z01.818 Encounter for other preprocedural examination (principal); I44.0 Atrioventricular block, first degree; R94.31 Abnormal electrocardiogram [ECG] [EKG]; I82.409 Acute embolism and thrombosis of unspecified deep veins of unspecified lower extremity; I10 Essential (primary) hypertension; E03.9 Hypothyroidism, unspecified; E78.5 Hyperlipidemia, unspecified; Z86.711 Personal history of pulmonary embolism
CPT/HCPCS: 82040; 82247; 82310; 82374; 82435; 82565; 82947; 84075; 84132; 84155; 84295; 84443; 84450; 84460; 84520; 84550; 85025; 85610; 85730

== ENCOUNTER 2018-09-21 00:11 | Inpatient (IN) | payer MEDICARE, OTHER ==
[2018-08-07 14:26] VITALS: Ht 175.3 cm; Wt 81.6 kg
[2018-09-20 13:38] LABS: INR 0.99
--- NOTE | 2018-09-20 15:20 | RADIOLOGY IMAGING REPORT ---
FACILITY: [facility] PATIENT NAME: Chito Jolley : 1945 MR: [id number] V: [id number] EXAM DATE: ORDERING PHYSICIAN: EDGAR WADDELL TECHNOLOGIST: Location: [facility] Patient: Chito Jolley : 1945 Visit/Account:[id number] Date of Sevice: 09/14/2018 LEGS BILAT STANDING HIPS-ANKLE Indication: L KNEE ARTHROPLASTY Comparison: None. Findings: Right leg length: 84.6 cm. This is measured from the cephalad portion of the femoral head to the tib ial distal articular surface. Right femur measurement from the superior margin of the femoral head t o the medial femoral condyle is 48.2 cm.. The right tibia measures 35.6 cm from the medial tibial pl ateau to the medial tibial plafond. Left leg measurement: 84.4 cm. The left femur measures 48 cm from the superior margin of the left fe moral head to the medial femoral condyle. The left tibia measures 36.2 cm from the medial tibial soha teau to the medial tibial plafond. No acute osseous amount is seen in the right or left lower extremity. Impression: Right and left leg length measurements. Report Dictated By: Dada Lopez at 09/20/2018 3:12 PM Report E-Signed By: Dada Lopez at 09/20/2018 3:18 PM WSN:[email or web address]
[~2018-09-21] VITALS: Ht 175.3 cm; Wt 81.6 kg
[2018-09-21] VITALS (18 sets, daily range): BP systolic 90–119; BP diastolic 7–69
[2018-09-21] MEDS: NORMOSOL R SOLN(*) 1000 ML BAG 1,000 ML IV PRN ×2 (07:21→14:44)
[2018-09-21] MEDS ORDERED: fentaNYL CITR 100 MCG/2 ML AMP ONE ×2 (07:51→10:25)
[2018-09-21] MEDS ORDERED: LIDOCAINE MPF 1% 5 ML VIAL ONE (07:52)
[2018-09-21] MEDS ORDERED: DEXAMETHASONE SOD 4 MG/ML VIAL ONE (07:52)
[2018-09-21] MEDS ORDERED: ONDANSETRON 4 MG/2 ML VIAL ONE (07:52)
[2018-09-21] MEDS ORDERED: PROPOFOL EMUL(*) 10MG/ML 20 ML 20 ML ONE (07:52)
[2018-09-21] MEDS ORDERED: ROPIVACAINE 0.5% 20 ML VIAL ONE (07:56)
[2018-09-21] MEDS ORDERED: NS 0.9% 20 ML SDV 40 ML ONE (07:56)
[2018-09-21] MEDS ORDERED: VANCOMYCIN(*) 1 GM VIAL 1 GM, VANCOMYCIN (*) 0.5 GM VIAL 0.25 GM in NS(*) 0.9% 250 ML B... IVPB ONE (08:00)
[2018-09-21] MEDS ORDERED: CELECOXIB 200 MG CAP PO ONE (08:25)
[2018-09-21] MEDS ORDERED: ROPIVACAINE/EPI/CLONIDINE/KET 50 ML SYRINGE INJ ONE (08:25)
[2018-09-21] MEDS ORDERED: PREGABALIN 75 MG CAPSULE PO ONE (08:25)
[2018-09-21] MEDS ORDERED: ACETAMINOPHEN 500 MG TAB PO ONE (08:25)
[2018-09-21] MEDS ORDERED: MIDAZOLAM 2 MG/2 ML VIAL IVP PRN (08:25)
[2018-09-21] MEDS ORDERED: LIDOCAINE/SOD BICARB 8.4% SYR ID ONE (08:25)
[2018-09-21] MEDS ORDERED: methylPREDNIS ACE 40MG/ML VIAL ONE (08:47)
[2018-09-21] MEDS ORDERED: LIDOCAINE 1%MDV(*)200 MG/20 ML 1 ML ONE (08:47)
[2018-09-21] MEDS ORDERED: ROCURONIUM BROM 10 MG/ML 10 ML ONE (09:17)
[2018-09-21] MEDS ORDERED: KETAMINE HCL 200 MG/20 ML MDV ONE (09:35)
[2018-09-21] MEDS ORDERED: SUGAMMADEX SOD 200 MG/2 ML SDV ONE (10:00)
[2018-09-21] MEDS ORDERED: NS 0.9% IRRIGATION 1000ML PLCT IR ONE (10:01)
--- NOTE | 2018-09-21 11:50 | OPERATIVE REPORT 1 ---
EVENT DATE: September 21, 2018 SURGEON: Nilson Marie MD ANESTHESIOLOGIST: Anuj Sandoval MD ANESTHESIA: General plus IPACK and adductor canal block. RECORD PRESS TENDER: HECTOR Salazar, SHREDDED FILLER HOPPER FEEDER PREOPERATIVE DIAGNOSIS Left knee medial compartment degenerative joint disease. POSTOPERATIVE DIAGNOSIS Left knee medial compartment degenerative joint disease. PROCEDURE PERFORMED Left unicompartmental arthroplasty of the knee (04099). ESTIMATED BLOOD LOSS 75 cc IV FLUIDS 1800 cc Crystalloid, no colloid. TOURNIQUET TIME 63 minutes at 300 mmHg SPECIMENS None. COMPLICATIONS None. IMPLANTS USED [place] unicompartmental medial arthroplasty, size medium femur, size D left tibia, and a 3 mm insert. DESCRIPTION OF PROCEDURE The patient was brought into the operating room and placed on the OR table in the supine position. Dr. Sandoval then did an adductor canal block and an IPACK block after which he was given a light general anesthetic and he was positioned for prep and drape using the thigh paniagua. We exsanguinated the limb and inflated the tourniquet initially to 275 mmHg and then up to 300 mmHg. 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 A standard medial approach was taken deep in through the skin and subcutaneous tissue by blunt spreading and then the capsulotomy was undertaken. The fluid was clear. The anterior aspect of the tibial was exposed for our bone cuts and we removed for the time being just the anterior meniscus. We examined the ACL which was in good condition as well as the lateral compartment and the patellofemoral compartment, all of which were acceptable. The osteophytes on the medial side were then removed, starting up at the superior medial aspect and going around to the outside, but we took care not to damage the MCL or to loosen it in anyway. We also removed osteophytes anteriorly where they impinged in extension. Once this was done, we sized an it looked like a 1 mm medium would work well. We selected a size 4 block and did the tibial alignment guide, pinned this and then started with our vertical cut, followed by the transverse cut using an osteotome to elevate it and then pulled it out. Measuring this size it looked like it fit well with the size D. We then proceeded to oz the center of the curvature on the femoral component with blue dye. We used our size 4 sizing guide, and an IM denise and then pinned with the 4 mm followed by the 6 mm drill. This was followed by placement of the posterior cut guide which was undertaken. This bone was removed. We then went in and removed a bit more of the meniscus, but again, we took care not to destabilize the medial collateral ligament. After this, we were able to do our first sizing trials. Oddly, it was actually symmetric or nearly so. We only had to do one spigot after we had done our initial milling. We remilled and then did the anti-impingement milling. We also removed a bit more osteophyte at this point. We trialed again and a 2 was a little bit loose, so a 3 which is actually the smallest final implant anyway was selected. We had prepared the tibial tray with the keel tray system including the dolphin blade, trialed one final time and found it to be acceptable with the 3. We did adjacent drill holes along the keel hole for the tibia as well as peripherally around the femur and then mixed cement. Irrigation was followed by drying and then placement of cement initially at the tibia and then at the femur, followed by the insert. Since we were already as small as we could go with a 3, we did not do the trial, instead I just went straight to the final #3 and we held it at 45 degrees with compression until full polymerization. The tourniquet was then deflated. We did not use tranexamic acid due to his clotting disorder. There was little additional bleeding. We irrigated the wound again, checked for any residual cement, and then proceeded to close using #1 Vicryl for the quad and capsule, followed by repeat irrigation and closure with 3-0 Vicryl and 4-0 Monocryl for the skin. A Dermabond stip was applied. He was given a dry, sterile dressing, and was transferred to the recovery area in stable condition. I had injected a local anesthetic throughout the knee before closure. GABRIEL
--- NOTE | 2018-09-21 12:19 | RADIOLOGY IMAGING REPORT ---
FACILITY: [facility] [place] PATIENT NAME: Chito Jolley : 1945 MR: [id number] V: [id number] EXAM DATE: ORDERING PHYSICIAN: EDGAR WADDELL TECHNOLOGIST: Location: [facility] [place] Patient: Chito Jolley : 1945 Visit/Account:[id number] Date of Sevice: 09/21/2018 Exam type: KNEE LIMITED LEFT History: POST OP PLACEMENT Comparison: None. Findings: There is a unicompartmental medial left knee prosthesis appears in good anatomic alignment on the AP and lateral view. Soft tissue gas projects over the anterior aspect the left kidney IMPRESSION: 1. As above Report Dictated By: Asia Verde MD at 09/21/2018 12:15 PM Report E-Signed By: Asia Verde MD at 09/21/2018 12:16 PM WSN:[email or web address]
--- NOTE | 2018-09-21 14:22 | Hospitalist Consultation ---
History of Present Illness Requesting Physician Dr. Marie Reason for Consult Medical Management Chief Complaint s/p left knee replacement History of Present Illness He was admitted s/p left knee replacement. It is reported the surgery went well and without complication. History Problems: (1) Hypothyroidism Status: Chronic (2) Hypertension, benign Status: Chronic (3) DVT (deep venous thrombosis) Home Meds Active Scripts Ondansetron (ZOFRAN ODT) 4 Mg Tab.rapdis, 4 MG PO every 6 hours PRN for NAUSEA/VOMITING, #10 TAB TAKE 1 TABLET BY MOUTH EVERY 12 HOURS Prov:CHANELLE ART DO 07/13/18 Febuxostat (ULORIC) 40 Mg Tablet, 40 MG PO QDAY, #30 TAB 11 Refills Prov:JOSÉ MIGUEL COLMENARES MD 07/07/18 Lisinopril (LISINOPRIL) 20 Mg Tablet, 20 MG PO BID, #180 TAB 3 Refills Prov:JOSÉ MIGUEL COLMENARES MD 02/17/18 Pantoprazole Sodium (PANTOPRAZOLE SODIUM) 40 Mg Tablet.dr, 40 MG PO QDAY, #90 TAB.SR 3 Refills Prov:JOSÉ MIGUEL COLMENARES MD 12/22/17 Levothyroxine Sodium (LEVOTHYROXINE SODIUM) 75 Mcg Tablet, 75 MCG PO QDAY, #90 TAB 3 Refills Prov:OJSÉ MIGUEL COLMENARES MD 06/23/17 Reported Medications Enoxaparin Sodium (LOVENOX) 80 Mg/0.8 Ml Disp.syrin, 80 MG SQ BID 09/20/18 Warfarin Sodium (WARFARIN SODIUM) 5 Mg Tablet, 5 MG PO QDAY, TAB 09/14/18 Vitamin B Complex (VITAMIN B COMPLEX) 1 Each Capsule, 1 EACH PO DAILY, CAPSULE 09/08/18 Folic Acid (FOLIC ACID) 1 Mg Tablet, 1 MG PO QDAY, TAB 09/08/18 Tramadol Hcl (TRAMADOL HCL) 50 Mg Tablet, 50 MG PO Q6H, TAB 08/07/18 Docusate Sodium (COLACE) 100 Mg Capsule, 100 MG PO PRN, CAPSULE 08/07/18 Colchicine (COLCRYS) 0.6 Mg Tablet, 0.6 MG PO BID PRN for FOR GOUT ATTACK 07/07/18 Discontinued Reported Medications Warfarin Sodium (WARFARIN SODIUM) 5 Mg Tablet, 7.5 MG PO MCNAIR,WE, TAB 07/13/18 Warfarin Sodium (COUMADIN) 5 Mg Tablet, 5 MG PO MON,TUE,THUR,FRI,SAT 07/07/18 Discontinued Scripts Hydrocodone Bit/Acetaminophen (NORCO 5-325 TABLET) 1 Each Tablet, 1 EACH PO Q4H PRN for PAIN, #12 TAB Prov:CHANELLE ART DO 07/13/18 Lorazepam (ATIVAN) 1 Mg Tablet, 1 MG PO Q8-12H PRN for ANXIETY, #30 TAB Prov:JOSÉ MIGUEL COLMENARES MD 06/01/18 Amlodipine Besylate (AMLODIPINE BESYLATE) 5 Mg Tablet, 1 TAB PO QDAY, #90 TAB 3 Refills Prov:JOSÉ MIGUEL COLMENARES MD 05/12/18 Allergies: Coded Allergies: morphine (Unverified Adverse Reaction, Intermediate, VOMITING, 08/06/18) Patient History: FH: CVA (cerebrovascular accident) MOTHER, , Age:75 FH: cancer FATHER, , Age:66 FH: dementia FATHER, , Age:66 SISTER, Age:65, Onset:56 FH: diabetes mellitus FATHER, , Age:66 BROTHER, SISTER SISTER FH: kidney failure BROTHER, Hx Smoking: No Smoking Status: Never Smoker Exposure to Second Hand Smoke?: No Caffeine Intake: Soda Caffeine/Cups Per Day: 2-3 Hx Alcohol Use: No Hx Substance Use Disorder: No Social Drug Use: Never Review of Systems All Systems Reviewed/Normal: Yes, Except as Noted Exam Vital Signs Vital Signs Date Time Temp Pulse Resp B/P (MAP) Pulse Ox O2 Delivery O2 Flow Rate FiO2 09/21/18 12:56 92 Oxy Mask 2.0 09/21/18 12:35 97.8 85 16 94/61 (72) General Appearance: No Acute Distress, Afebrile Cardiovascular: Regular Rate and Rhythm Respiratory: No Respiratory Distress, Clear to Auscultation Psych: Other (sleeping through exam) Medical Decision Making Data Points Result Diagram: 09/21/18 4768 Assessment and Plan Problems: (1) Status post left knee replacement Status: Acute Assessment & Plan: He will resume his Warfarin and Lovenox in the morning. He does have history of DVT and PE. (2) Hypothyroidism Status: Chronic Assessment & Plan: He is on chronic treatment with Levothyroxine. (3) Hypertension, benign Status: Chronic Assessment & Plan: He is on chronic treatment with Lisinopril. This has been restarted with hold parameters. (4) DVT (deep venous thrombosis) Assessment & Plan: DVT discovered in July 2018. He is on chronic treatment with Warfarin. He has been covered with Lovenox. He will resume both Lovenox and Warfarin in the morning. Venous Thromboembolism Antithrombotics Is Pt On Any Antithrombotics?: Yes Exam Sepsis Risk: No Definite Risk ABDULAZIZ MÉNDEZP Sep 21, 2018 14:22
[2018-09-21] MEDS ORDERED: PROMETHAZINE 25 MG/ML 1 ML AMP IVP PRN (18:50)
[2018-09-21] MEDS ORDERED: ACETAMINOPHEN 500 MG TAB PO PRN (18:50)
[2018-09-21] MEDS ORDERED: MAGNESIUM CITRATE 300 ML BTL PO PRN (18:50)
[2018-09-21] MEDS ORDERED: FLUSH 10 ML SYR IVP PRN (18:50)
[2018-09-21] MEDS ORDERED: KCL/D5LR 20 MEQ/1000 ML PREMIX 1,000 ML IV PRN (18:50)
[2018-09-21] MEDS ORDERED: diphenhydrAMINE 25 MG CAP PO PRN (18:50)
[2018-09-21] MEDS ORDERED: ONDANSETRON 4 MG/2 ML VIAL IVP PRN (18:50)
[2018-09-21] MEDS ORDERED: NALOXONE HCL 0.4 MG/ML VIAL IVP PRN (18:55)
[2018-09-21] MEDS ORDERED: PCA LOCKBOX KEYS XX PRN (18:55)
[2018-09-21] MEDS ORDERED: HYDROmorphone PCA 6 MG/30 ML IV PRN (18:55)
[2018-09-21] MEDS: LISINOPRIL 20 MG TAB PO SCH (21:00)
[2018-09-22 03:46] VITALS: BP 92/58
[2018-09-22] MEDS ORDERED: LEVOTHYROXINE SOD 0.075 MG TAB PO SCH (06:00)
[2018-09-22 07:53] LABS: PLATELET COUNT, AUTOMATED 161 K/uL (150-450)
[2018-09-22 08:04] VITALS: BP 105/69
[2018-09-22] MEDS: LISINOPRIL 20 MG TAB PO SCH (08:17)
[2018-09-22] MEDS ORDERED: ENOXAPARIN 100 MG/ML SYR SC SCH (09:00)
[2018-09-22] MEDS ORDERED: PANTOPRAZOLE SOD 40 MG TABEC PO SCH (09:00)
--- NOTE | 2018-09-22 09:55 | Hospitalist Progress Note ---
Subjective Progress Notes Subjective He has no complaints this morning. He had no acute events overnight. Patient Complains of: Cardiovascular: No: Chest Pain Respiratory: No: Shortness of Breath Physical Exam Vital Signs Date Time Temp Pulse Resp B/P (MAP) Pulse Ox O2 Delivery O2 Flow Rate FiO2 09/22/18 08:14 87 09/22/18 08:08 Room Air 09/22/18 08:04 97.4 82 16 105/69 (81) 09/22/18 03:46 2.0 Intake and Output 09/22/18 00:00 Intake Total 2310 ml Output Total 75 ml Balance 2235 ml Intake Oral 360 ml IV Total 1950 ml Output Estimated Blood Loss 75 ml # Voids 2 General Appearance: Alert, Awake, No Acute Distress, Afebrile Neuro: No Gross deficits Cardiovascular: Regular Rate and Rhythm Respiratory: No Respiratory Distress, Clear to Auscultation GI: Soft and Non-Tender Psych: Alert & Oriented X3, Appropriate Mood & Affect Result Diagram: 09/22/18 0736 Assessment and Plan Problems: (1) Status post left knee replacement Status: Acute Assessment & Plan: He will resume his Warfarin and Lovenox today. He does have history of DVT and PE. He will get INR checked on Wednesday at Dr. Bermudez's office. He will continue Lovenox until INR check. (2) Hypothyroidism Status: Chronic Assessment & Plan: He is on chronic treatment with Levothyroxine. (3) Hypertension, benign Status: Chronic Assessment & Plan: He is on chronic treatment with Lisinopril. This has been restarted with hold parameters. (4) DVT (deep venous thrombosis) Assessment & Plan: DVT discovered in July 2018. He is on chronic treatment with Warfarin. He has been covered with Lovenox. He will resume both Lovenox and Warfarin today. See above. Exam Sepsis Risk: No Definite Risk ABDULAZIZ MÉNDEZ GARMENT FINISHER Sep 22, 2018 09:55
[2018-09-22] MEDS ORDERED: oxycodone PO (10:10)
[2018-09-22 10:44] VITALS: BP 124/68
[2018-09-22] MEDS ORDERED: WARFARIN SOD 5 MG TAB PO SCH (13:00)
== END 2018-09-22 13:10 | disposition home or self-care (01) | DRG 470 ==
LOC: OR 00:11 → MED 12:35
PROVIDERS: ADMIT Orthopaedic Surgery Hand Surgery; ATTEND Orthopaedic Surgery Hand Surgery
PROC: 0SRD0L9 Replacement of Left Knee Joint with Medial Unicondylar Synthetic Substitute, Cemented, Open Approach (ICD-10-PCS; principal; 2018-09-21 09:07)
DX: M17.12 Unilateral primary osteoarthritis, left knee (principal); I10 Essential (primary) hypertension; Z86.718 Personal history of other venous thrombosis and embolism; Z79.01 Long term (current) use of anticoagulants; Z88.5 Allergy status to narcotic agent; E03.9 Hypothyroidism, unspecified
CPT/HCPCS: 36415; 76942; 77073; 85014; 85018; 85025; 85610; 86850; 86900; 86901; 97161; C1713; C1776; J1030; J1100; J1650; J2001; J2250; J2370; J2405; J2704; J2795; J3010; J3370; J3490; J7050; Q0163

== ENCOUNTER → 2018-10-28 | Outpatient (CLI) | payer MEDICARE, OTHER ==
[2018-08-07 14:26] VITALS: BMI 27.8
[~2018-10-28] MED LIST changes: -AMLO-111 PO; -AMLO-113 PO; +AMLO-125 PO; +AMLO-127 PO; +oxycodone PO
[2018-10-28 12:02] LABS: PLATELET COUNT, AUTOMATED 226 K/uL (150-450)
[2018-10-28 12:05] LABS: INR 2.97
--- NOTE | 2018-10-28 13:40 | EKG ---
FACILITY: [facility] [place] PATIENT NAME: CORDELIA NEAL : [id number] MR: [id number] V: [id number] EXAM DATE: ORDERING PHYSICIAN: JOSÉ MIGUEL COLMENARES TECHNOLOGIST: BELKIS Test Reason : SOB Blood Pressure : / mmHG Vent. 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
== END ==
LOC: LAB 11:35
PROVIDERS: ATTEND Internal Medicine
DX: I82.409 Acute embolism and thrombosis of unspecified deep veins of unspecified lower extremity (principal); Z96.652 Presence of left artificial knee joint; N28.9 Disorder of kidney and ureter, unspecified; E03.9 Hypothyroidism, unspecified; I10 Essential (primary) hypertension; I95.9 Hypotension, unspecified
CPT/HCPCS: 36415; 82040; 82247; 82310; 82374; 82435; 82565; 82947; 84075; 84132; 84155; 84295; 84450; 84460; 84520; 85025; 85610

== ENCOUNTER 2018-12-08 13:45 | Outpatient (RCR) | payer MEDICARE, OTHER ==
[2018-08-07 14:26] VITALS: BMI 27.8
--- NOTE | 2018-09-30 09:33 | PT INITIAL EVALUATION ---
MEDICAL DIAGNOSIS: L knee medial unicompartmental TREATMENT DIAGNOSIS: same, altered gait mechanics DATE OF ONSET: 09/21/18 SUBJECTIVE: Chito Jolley presents to physical therapy status post L knee medial unicompartmental replacement on September 21, 2018. He reports that he has been having extreme pain in his L knee region and rates his current pain to be 6- 7/10. He reports that the pain medications are not taking away the edge of his pain like they typically do following a procedure. He denies any fevers. He reports that he has been having the chills and then the sweats. He also reports that sleeping has been difficult since he cannot find a position that is comfortable as his R hip has been causing him more issues since the surgical intervention was performed. He rates the R hip pain to be 5-6/10. He reports that the CPM has not been working properly; however, he states that the issue was fixed today with a new CPM. He reports that his current setting on the CPM were 0-50 degrees and was instructed to increase it by 5 degrees every other day. He describes the pain to be constant burning and sharp. He reports that he has been icing his knee as much as possible but typically feels worse after doing so. He denies any calf pain. He reports that the knee region feels tight like it has significant swelling. . Pain location is L anterior-lateral regions . Pain scale is 6 on a ten point pain scale. REHAB PROBLEM LIST: Increased Pain Decreased ROM Decreased Strength Decreased Endurance Decreased Balance Decreased Function Decreased ADL's Decreased Mobility Decreased Gait PREVIOUS MEDICAL HISTORY: See EMR OCCUPATION: Self Employed OBJECTIVE: Posture: He demonstrates forward head, increased B rounded shoulders, increased thoracic kyphosis, and decreased lumbar lordosis. ROM: PROM of L Knee: extension: 8 degrees from 0. flexion: 85 degrees. Strength: Quad lag of 25 degrees Palpation: TTP: anterior to lateral to posterior to medial joint lines of his L knee, anterior thigh, posterior capsule, posterior thigh, medial and lateral thigh. Sensation: Will test in the future Special Tests: Incision healing well; no signs or symptoms of infection Mobility: Independent Gait: With AD he demonstrated significant antalgic gait, decreased R step length, increased base of support, decreased pelvic rotation, and increased lateral trunk movement. ASSESSMENT: Chito will benefit from skilled physial therapy addressing the listed impairments to improve function and return to prior level of function. Short Term Goals 2 weeks: Pt will demonstrate L knee AROM from baseline to 0-100 degrees to improve function and QOL. 4 weeks: Pt will demonstrate L knee AROM from baseline to 0-130 degrees to improve function and QOL. 5 weeks: Pt will transition from crutches to cane to independent and return to prior level of function with his gait mechanics to improve function and QOL. 6 weeks: Pt will demonstrate increased B LE strength from baseline to 4+/5 or greater to improve function and improve QOL. Patient's Goals get back to work, get back to walking, and be able to get out of the house and do stuff PLAN: Patient to be seen for Manual Therapy/STM/MET Strengthening/condition Ice/Heat Range of Motion Spinal Stabilization Work Hardening/Cond Stretching Iontophoresis Neuromuscular Re-ed Closed Chain Program Electrical Stim Posture/Body mechanics Gait Trg/Balance Trg Home Exercise Program Therapeutic Activities 2-3x/week for 2 Months If you have any questions, comments, or concerns about this report or plan, please contact me at . Thank you, Anuj Lion, PT, DPT MTDD
--- NOTE | 2018-10-19 16:11 | PT PLAN OF CARE ---
Physician: Nilson Marie MD Patient is being seen: 2-3x/week Therapist: Anuj Lion, PT, DPT Medical Diagnosis: L knee medial unicompartmental Treatment Diagnosis: same, altered gait mechanics Date of Onset: 09/21/18 Date of Initial Evaluation: 09/29/18 Date patient was last seen: 10/19/18 Number of treatments: 10 Number of cancellations/No shows: 0 INTERVENTIONS: Manual Therapy/STM/MET Strengthening/condition Ice/Heat Range of Motion Spinal Stabilization Work Hardening/Cond Stretching Iontophoresis Neuromuscular Re-ed Closed Chain Program Electrical Stim Posture/Body mechanics Gait Trg/Balance Trg Home Exercise Program Therapeutic Activities GOALS: 2 weeks: Pt will demonstrate L knee AROM from baseline to 0-100 degrees to improve function and QOL. MET 4 weeks: Pt will demonstrate L knee AROM from baseline to 0-130 degrees to improve function and QOL. Not MET 5 weeks: Pt will transition from crutches to cane to independent and return to prior level of function with his gait mechanics to improve function and QOL. MET 6 weeks: Pt will demonstrate increased B LE strength from baseline to 4+/5 or greater to improve function and improve QOL.Not MET PATIENT'S GOAL: get back to work, get back to walking, and be able to get out of the house and do stuff Status of Patient's Goals: Progressing well Patient Compliance: Good Prognosis: Excellent Reasons for continuing therapy: This is a progress note for Chito Jolley. He reports that he continues to have pain and rates it to be 3-4/10. He reports that the pain does not allow him to get comfortable so that he can get a good night rest. He reports that he feels like the motion is coming back well and states that he has been moving it a lot throughout the days along with ice and elevation. He continues to report swelling around the knee. He continues to demonstrate increased L knee extension and flexion, increased gait mechanics, but continues to have a mild antalgic gait, increased quad strength as he demonstrates no quad lag, increased accessory mobility of his patella, and increased accessory incisional mobility. We will continue to improve range of motion, decrease swelling, increase quad strength and then transition to improving and returning to prior level of function with strength, endurance, and gait. Posture: He demonstrates forward head, increased B rounded shoulders, increased thoracic kyphosis, and decreased lumbar lordosis. ROM: PROM of L Knee: extension: 0 degrees. flexion: 120-125 degrees. Strength: Quad lag of 0 degrees Special Tests: Incision healing well; no signs or symptoms of infection Mobility: Independent If you have any questions, please contact me at [phone]. Thank you, Anju Lion, PT, DPT MTDD
--- NOTE | 2018-11-15 17:01 | PT PLAN OF CARE ---
Physician: Nilson Marie MD Patient is being seen: 2-3x/week Therapist: Anuj Lion, PT, DPT Medical Diagnosis: L knee medial unicompartmental Treatment Diagnosis: same, altered gait mechanics Date of Onset: 09/21/18 Date of Initial Evaluation: 09/29/18 Date patient was last seen: 11/14/18 Number of treatments: 21 Number of cancellations/No shows: 0 INTERVENTIONS: Manual Therapy/STM/MET Strengthening/condition Ice/Heat Range of Motion Spinal Stabilization Work Hardening/Cond Stretching Iontophoresis Neuromuscular Re-ed Closed Chain Program Electrical Stim Posture/Body mechanics Gait Trg/Balance Trg Home Exercise Program Therapeutic Activities GOALS: 2 weeks: Pt will demonstrate L knee AROM from baseline to 0-100 degrees to improve function and QOL. MET 4 weeks: Pt will demonstrate L knee AROM from baseline to 0-130 degrees to improve function and QOL. MET 5 weeks: Pt will transition from crutches to cane to independent and return to prior level of function with his gait mechanics to improve function and QOL. MET 6 weeks: Pt will demonstrate increased B LE strength from baseline to 4+/5 or greater to improve function and improve QOL. Progressing PATIENT'S GOAL: get back to work, get back to walking, and be able to get out of the house and do stuff Status of Patient's Goals: 3/4 MET Patient Compliance: Good Prognosis: Excellent Reasons for continuing therapy: This is a progress note for Chito Jolley. He reports that he is doing well with the occasional ache and rates it to be 1/10. He demonstrates full L knee PROM-AROM into extension and flexion, increased B LE strength (has progressed to eccentrics as well), decreased pain, improvements with gait mechanics as he demonstrates equal step lengths, step clearance, and no antalgic gait unless he does not focus on his gait mechanics and then it turns into minimal antalgic gait. He is progressing well and will progress to home exercise program in the next 10 sessions or less. Posture: He demonstrates forward head, increased B rounded shoulders, increased thoracic kyphosis, and decreased lumbar lordosis. ROM: PROM of L Knee: extension: -5 degrees. flexion: 130 degrees. Strength: Quad lag of 0 degrees: R LE: 5/5. L LE: 4+/5. Special Tests: Incision healing well; no signs or symptoms of infection Mobility: Independent If you have any questions or concerns, please contact me at [phone]. Thank you, Anuj Lion, PT, DPT [facility]
--- NOTE | 2018-12-08 15:54 | PT PLAN OF CARE ---
Physician: Nilson Marie MD Patient is being seen: 2x/week Therapist: Anuj Lion, PT, DPT Medical Diagnosis: L knee medial unicompartmental Treatment Diagnosis: same, altered gait mechanics Date of Onset: 09/21/18 Date of Initial Evaluation: 09/29/18 Date patient was last seen: 12/08/18 Number of treatments: 28 Number of cancellations/No shows: 1 INTERVENTIONS: Manual Therapy/STM/MET Strengthening/condition Ice/Heat Range of Motion Spinal Stabilization Work Hardening/Cond Stretching Iontophoresis Neuromuscular Re-ed Closed Chain Program Electrical Stim Posture/Body mechanics Gait Trg/Balance Trg Home Exercise Program Therapeutic Activities GOALS: 2 weeks: Pt will demonstrate L knee AROM from baseline to 0-100 degrees to improve function and QOL. MET 4 weeks: Pt will demonstrate L knee AROM from baseline to 0-130 degrees to improve function and QOL. MET 5 weeks: Pt will transition from crutches to cane to independent and return to prior level of function with his gait mechanics to improve function and QOL. MET 6 weeks: Pt will demonstrate increased B LE strength from baseline to 4+/5 or greater to improve function and improve QOL. MET PATIENT'S GOAL: get back to work, get back to walking, and be able to get out of the house and do stuff Status of Patient's Goals: 01/05 MET Patient Compliance: Good Prognosis: Excellent Reasons for continuing therapy: This is a discharge note for Chito Jolley. He reports that he is doing well. He reports that he can do everything that he could do prior to the surgery. He reports that the only thing that continues to be a little difficult is going down the stairs. He feels like he is independent with his home exercise program and feels like he is ready for discharge. He has progressed well within PT and demonstrated the following improvements: full L knee extension and flexion with normalized end feels, normalized gait mechanics, return to prior strength level, return to prior balance strategies level, and independent with his home exercise program. He has met all of his goals. As a result, he will be discharged from PT to [facility]. Posture: He demonstrates forward head, increased B rounded shoulders, increased thoracic kyphosis, and decreased lumbar lordosis. ROM: PROM of L Knee: extension: -5 degrees. flexion: 135 degrees. Strength: Quad lag of 0 degrees: R LE: 5/5. L LE: 5/5. Special Tests: Incision healing well; no signs or symptoms of infection Mobility: Independent If you have any questions or concerns, please contact me at [phone]. Thank you, Anuj Lion, PT, DPT [facility]
[2018-12-09] MEDS ORDERED: LISI5TAB25 PO (02:36)
== END 2018-12-28 ==
LOC: PT 13:45
PROVIDERS: ATTEND Orthopaedic Surgery Hand Surgery
DX: Z96.652 Presence of left artificial knee joint (principal); R26.89 Other abnormalities of gait and mobility
CPT/HCPCS: 97010; 97032; 97110; 97140; 97161; G0283

== ENCOUNTER 2018-12-09 02:19 | Inpatient (IN) | payer MEDICARE, OTHER ==
[~2018-12-09] VITALS: Ht 175.3 cm; Wt 78.9 kg
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
[2018-12-09] MEDS ORDERED: NS(*) 0.9% 1000 ML BAG 1,000 ML IV ONE (02:34)
[2018-12-09] MEDS ORDERED: ONDANSETRON 4 MG/2 ML VIAL IVP ONE (02:35)
[2018-12-09] MEDS ORDERED: HYDROMORPHONE HCL 1 MG/ML SYRINGE IVP ONE ×2 (02:35→03:55)
[2018-12-09] MEDS ORDERED: LISI5TAB25 PO (02:36)
[2018-12-09] MEDS ORDERED: IOPAMIDOL 76% 100 ML INFUS BTL 100 ML ONE (02:49)
[2018-12-09 02:55] LABS: PLATELET COUNT, AUTOMATED 296 K/uL (150-450)
[2018-12-09 03:03] LABS: INR 2.09
--- NOTE | 2018-12-09 03:42 | RADIOLOGY IMAGING REPORT ---
FACILITY: [facility] - [place] PATIENT NAME: Chito Jolley : 1945 MR: [id number] V: EXAM DATE: ORDERING PHYSICIAN: ADRIANNA LUCERO TECHNOLOGIST: Location: [facility] [place] Patient: Chito Jolley : 1945 Visit/Account:[id number] Date of Sevice: 12/09/2018 CT ABDOMEN PELVIS W/ CON HISTORY: Periumbilical pain. History of small bowel obstruction. COMPARISON: 08/06/2018 and studies dating to 07/04/2006. TECHNIQUE: Axial images were obtained from the lung bases through the symphysis pubis with intravenou s contrast. Sagittal and coronal reformats were performed. One of the following dose optimization techniques was utilized in the performance of this exam: Autom ated exposure control; adjustment of the mA and/or kV according to the patient's size; or use of an i terative reconstruction technique. Specific details can be referenced in the facility's radiology CT exam operational policy. CONTRAST: 75 mL IV Isovue-[id number]. FINDINGS: Lower chest: Stable atelectasis or scarring at the right base and stable associated bronchiectasis. T here is coronary artery calcification, moderate in severity. Liver: Liver is diffusely decreased in attenuation, compatible with hepatic steatosis. There is a danyelle cified granuloma in the inferior right lobe. There are also 2 adjacent calcifications inferior to the right lobe that may be due to prior infection, unchanged. There is a too small to characterize low a ttenuating lesion in the subcapsular right lobe of liver (coronal image 52), unchanged. Gallbladder/biliary: Normal. Pancreas: Normal. Spleen: Normal. Adrenals: Normal. Kidneys/ureters/bladder: Normal. GI/mesentery/peritoneal cavity: There is a small bowel anastomosis in the ileum. Anastomosis is paten t. There are dilated fluid-filled loops of bowel in the upper to mid abdomen with the transition in t he lower abdomen, just left of midline (axial image 92 series 2, coronal image 45, and sagittal image 85). There is a small bowel feces sign just proximal to the transition. There is a small amount of r eactive free fluid adjacent to the dilated small bowel loops. No free air. Distal small bowel loops a re decompressed. The appendix is not discretely visualized. No inflammatory stranding in the right lo wer quadrant. There is sigmoid diverticulosis without diverticulitis. Vessels: There is mild to moderate atherosclerotic disease. There is an aneurysm of the left common i liac artery measuring 2.7 cm (axial image 97), unchanged. No dissection. 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 Nodes: Normal. Pelvis: There is coarse calcification along the left pelvic sidewall, tracking the course of the exte rnal iliac artery, unchanged. There are pelvic phleboliths. There are coarse prostate calcifications. Prostate is prominent, measuring 5.5 cm. Bones/vertebra/soft tissues: Small fat-containing left periumbilical hernia (image 93 series 2). Ther e are varices in the ventral pelvic subcutaneous fat. There is mild degenerative change of the hips. There is rightward curvature of the lumbar spine. There is moderate to severe multilevel degenerative change of the spine, unchanged. There are numerous vacuum clefts. There is stable wedging of T11-L1. There is stable 5 mm retrolisthesis of L3 compared to L4. IMPRESSION: 1. Small bowel obstruction with transition in the left lower abdomen. There is a small amount of reac tive free fluid adjacent to dilated bowel loops. 2. Sigmoid diverticulosis. 3. Hepatic steatosis. It can progress to steatohepatitis and eventual cirrhosis. 4. Moderate coronary artery calcification. 5. 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 Findings a small bowel obstruction were discussed by phone with ADRIANNA LUCERO on 12/09/2018 3:33 AM. Report Dictated By: Jessica Hernández at 12/09/2018 3:18 AM Report E-Signed By: Jessica Hernández at 12/09/2018 3:37 AM WSN:[id number]
[2018-12-09] MEDS ORDERED: ONDANSETRON 4 MG/2 ML VIAL IVP PRN (03:55)
[2018-12-09 04:38] VITALS: BP 151/89
[2018-12-09] MEDS ORDERED: NS(*) 0.9% 1000 ML BAG 1,000 ML IV PRN (05:00)
[2018-12-09] MEDS: HYDROmorphone HCL 2 MG/ML SDV IVP PRN ×6 (06:19→17:43)
[2018-12-09 07:07] VITALS: BP 117/83
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
[2018-12-09 10:20] VITALS: Ht 175.3 cm; Wt 78.9 kg
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
[2018-12-09] MEDS ORDERED: NALOXONE HCL 0.4 MG/ML VIAL IVP PRN (11:30)
[2018-12-09 12:02] VITALS: BP 132/84
[2018-12-09] MEDS: KCL/D1/2NS 20 MEQ 1000 ML 1,000 ML IV PRN ×2 (13:03→23:02)
[2018-12-09 15:21] VITALS: BP 136/80
[2018-12-09] MEDS ORDERED: PCA LOCKBOX KEYS XX PRN ×2 (17:55→18:20)
[2018-12-09] MEDS: HYDROmorphone PCA 6 MG/30 ML IV PRN (18:41)
[2018-12-09 19:45] VITALS: BP 106/88
[2018-12-09 23:50] VITALS: BP 126/76
[2018-12-10 03:46] VITALS: BP 134/74
[2018-12-10 06:05] LABS: PLATELET COUNT, AUTOMATED 200 K/uL (150-450)
[2018-12-10 07:11] VITALS: BP 132/77
--- NOTE | 2018-12-10 09:27 | General Surgery Progress Note ---
Subjective Progress Notes Subjective less pain, no flatus, feels good; required increased Oxygen overnight though denies CP or SOB Physical Exam Vital Signs Date Time Temp Pulse Resp B/P (MAP) Pulse Ox O2 Delivery O2 Flow Rate FiO2 12/10/18 08:03 93 12/10/18 07:11 98.1 76 14 132/77 (95) Nasal Cannula 2.0 Intake and Output 12/10/18 07:00 Intake Total 1331 ml Balance 1331 ml Intake IV Total 1331 ml # Voids 4 General Appearance: Alert, Awake, No Acute Distress, Afebrile Cardiovascular: Normal Rhythm & Peripheral Pulses Respiratory: No Respiratory Distress, Clear to Auscultation GI: Soft and Non-Tender, Other (non-distended, non-tender) Musculoskeletal: No Weakness/Pain Integumentary: Skin Intact without Lesion / Mass Psych: Alert & Oriented X3, Appropriate Mood & Affect Result Diagram: 12/10/18 0531 12/10/18 0531 Monitor Interpretation: Normal Sinus Rhythm Assessment and Plan Problems: (1) Small bowel obstruction due to adhesions Status: Acute Assessment & Plan: Recurrent partial small bowel obstruction in the setting of multiple prior surgeries and dense adhesions per pt report. He will be admitted with IVF hydration, bowel rest and serial abd exams. I stressed the importance of NGT decompression with the pt and family at the bedside. He continues to decline at this time. Without peritonitis on exam he does not require emergent operative intervention at this time. 12/10/18: stable overnight, await return of bowel function. Cont NPO. (2) Hypoxia Status: Chronic Assessment & Plan: uses oxygen at home 2 LPM baseline. Will check CXR this am. Cont pulm toilet. Time Spent: > 30 min Exam Sepsis Risk: No Definite Risk LINA POWER MD Dec 10, 2018 09:27
[2018-12-10] MEDS: PANTOPRAZOLE SOD 40 MG IV VIAL IVP SCH (09:54)
[2018-12-10] MEDS: KCL/D1/2NS 20 MEQ 1000 ML 1,000 ML IV PRN ×2 (10:01→23:53)
--- NOTE | 2018-12-10 12:07 | RADIOLOGY IMAGING REPORT ---
FACILITY: [facility] PATIENT NAME: Chito Jolley : 1945 MR: [id number] V: [id number] EXAM DATE: ORDERING PHYSICIAN: LINA POWER TECHNOLOGIST: [place] [facility] [place] Chito Jolley : 1945 Visit/Account:[id number] Date of Sevice: 12/10/2018 Technique: CHEST SINGLE AP HISTORY: hypoxia Comparison studies: Chest radiograph August 07, 2018 CTA chest July 24, 2018 FINDINGS: There remains elevation of the right hemidiaphragm. Right midlung atelectasis and/or scarri ng is noted. No acute airspace consolidation. The cardiac silhouette is unchanged. IMPRESSION: 1. No acute cardiopulmonary process. 2. Chronic findings as above. Report Dictated By: Titus Benoit DO at 12/10/2018 12:02 PM Report E-Signed By: Titus Benoit DO at 12/10/2018 12:03 PM WSN:[id number]
[2018-12-10 12:31] VITALS: BP 147/80
[2018-12-10 16:24] VITALS: BP 139/88
[2018-12-10 19:38] VITALS: BP 137/61
[2018-12-10 23:15] VITALS: BP 127/75
[2018-12-11] MEDS: HYDROmorphone PCA 6 MG/30 ML IV PRN (03:42)
[2018-12-11 03:57] VITALS: BP 127/74
[2018-12-11 07:01] VITALS: BP 162/84
--- NOTE | 2018-12-11 07:55 | General Surgery Progress Note ---
Subjective Progress Notes Subjective + flatus, no NV, no stool Physical Exam Vital Signs Date Time Temp Pulse Resp B/P (MAP) Pulse Ox O2 Delivery O2 Flow Rate FiO2 12/11/18 07:01 98.3 100 18 162/84 (110) 96 Nasal Cannula 3.0 Intake and Output 12/11/18 07:00 Intake Total 1940 ml Balance 1940 ml Intake IV Total 1940 ml # Voids 3 General Appearance: Alert, Awake, No Acute Distress, Afebrile Cardiovascular: Normal Rhythm & Peripheral Pulses Respiratory: No Respiratory Distress, Clear to Auscultation GI: Soft and Non-Tender, Other (no peritoneal signs, non-distended) Musculoskeletal: No Weakness/Pain Integumentary: Skin Intact without Lesion / Mass Psych: Alert & Oriented X3, Appropriate Mood & Affect Result Diagram: 12/10/1853012/10/18530 Monitor Interpretation: Normal Sinus Rhythm Assessment and Plan Problems: (1) Small bowel obstruction due to adhesions Status: Acute Assessment & Plan: Recurrent partial small bowel obstruction in the setting of multiple prior surgeries and dense adhesions per pt report. He will be admitted with IVF hydration, bowel rest and serial abd exams. I stressed the importance of NGT decompression with the pt and family at the bedside. He continues to d ecline at this time. Without peritonitis on exam he does not require emergent operative intervention at this time. 12/10/18: stable overnight, await return of bowel function. Cont NPO. 12/11/18: SBO resolving, limited sips clear liquid. (2) Hypoxia Status: Chronic Assessment & Plan: uses oxygen at home 2 LPM baseline. Will check CXR this am. Cont pulm toilet. 12/11/18: hypoxia improved, O2 requirements back to baseline. Time Spent: > 30 min Exam Sepsis Risk: No Definite Risk LINA POWER MD Dec 11, 2018 07:55
[2018-12-11] MEDS: PANTOPRAZOLE SOD 40 MG IV VIAL IVP SCH (09:36)
[2018-12-11 11:38] VITALS: BP 153/84
[2018-12-11] MEDS: KCL/D1/2NS 20 MEQ 1000 ML 1,000 ML IV PRN (12:18)
[2018-12-11 12:48] LABS: INR 1.26
[2018-12-11] MEDS ORDERED: KCL/D1/2NS 20 MEQ 1000 ML 1,000 ML IV PRN (14:21)
[2018-12-11] MEDS: WARFARIN SOD 5 MG TAB PO SCH (16:46)
[2018-12-11] MEDS: ENOXAPARIN 40 MG/0.4ML SYR SC SCH (16:47)
[2018-12-11] MEDS: DOCUSATE SOD LIQ 100 MG/10 ML UDC PO SCH ×2 (16:48→20:48)
[2018-12-11] MEDS: BISACODYL 10 MG SUPP PR SCH ×2 (16:49→20:48)
[2018-12-11] MEDS ORDERED: diphenhydrAMINE 25 MG CAP PO PRN (19:25)
[2018-12-11 20:17] VITALS: BP 139/88
[2018-12-11 23:39] VITALS: BP 177/97
[2018-12-12 03:33] VITALS: BP 146/87
[2018-12-12 06:16] LABS: INR 1.18
[2018-12-12 07:54] VITALS: BP 138/86
--- NOTE | 2018-12-12 08:08 | General Surgery Progress Note ---
Subjective Progress Notes Subjective +BM Physical Exam Vital Signs Date Time Temp Pulse Resp B/P (MAP) Pulse Ox O2 Delivery O2 Flow Rate FiO2 12/12/18 07:54 98.2 76 16 138/86 (103) 96 Nasal Cannula 2.5 Intake and Output 12/12/18 07:00 Intake Total 2110 ml Balance 2110 ml Intake Oral 340 ml IV Total 1770 ml # Voids 5 # Bowel Movements 2 General Appearance: Alert, Awake, No Acute Distress, Afebrile Neuro: No Gross deficits Cardiovascular: Normal Rhythm & Peripheral Pulses Respiratory: No Respiratory Distress, Clear to Auscultation GI: Soft and Non-Tender, Other (non-distended) Musculoskeletal: No Weakness/Pain Integumentary: Skin Intact without Lesion / Mass Psych: Alert & Oriented X3, Appropriate Mood & Affect Result Diagram: 12/12/1853012/12/18530 Monitor Interpretation: Normal Sinus Rhythm Assessment and Plan Problems: (1) Small bowel obstruction due to adhesions Status: Acute Assessment & Plan: Recurrent partial small bowel obstruction in the setting of multiple prior surgeries and dense adhesions per pt report. He will be admitted with IVF hydration, bowel rest and serial abd exams. I stressed the importance of NGT decompression with the pt and family at the bedside. He continues to decline at this time. Without peritonitis on exam he does not require emergent operative intervention at this time. 12/10/18: stable overnight, await return of bowel function. Cont NPO. 12/11/18: SBO resolving, limited sips clear liquid. 12/12/18: continues to improve. ADAT. Probable DC later today. Will need chronic PO cathartics. DC teaching done. (2) Hypoxia Status: Chronic Assessment & Plan: uses oxygen at home 2 LPM baseline. Will check CXR this am. Cont pulm toilet. 12/11/18: hypoxia improved, O2 requirements back to baseline. 12/12/18: no further resp difficulties. Time Spent: > 30 min Exam Sepsis Risk: No Definite Risk LINA POWER MD Dec 12, 2018 08:08
[2018-12-12] MEDS: DOCUSATE SOD LIQ 100 MG/10 ML UDC PO SCH (08:18)
[2018-12-12] MEDS: ENOXAPARIN 40 MG/0.4ML SYR SC SCH (08:18)
[2018-12-12] MEDS: PANTOPRAZOLE SOD 40 MG IV VIAL IVP SCH (08:18)
[2018-12-12] MEDS: BISACODYL 10 MG SUPP PR SCH (08:18)
[2018-12-12 11:17] VITALS: BP 141/84
[2018-12-12] MEDS: HYDROmorphone PCA 6 MG/30 ML IV PRN (12:51)
[2018-12-12] MEDS: WARFARIN SOD 5 MG TAB PO SCH (12:56)
--- NOTE | 2018-12-12 15:33 | Short(Outpt) Discharge Summary ---
Discharge Summary Reason for Hosp/Final Diag: (1) Small bowel obstruction due to adhesions Status: Acute Hospital Course & Plan: Recurrent partial small bowel obstruction in the setting of multiple prior surgeries and dense adhesions per pt report. He will be admitted with IVF hydration, bowel rest and serial abd exams. I stressed the importance of NGT decompression with the pt and family at the bedside. He continues to decline at this time. Without peritonitis on exam he does not require emergent operative intervention at this time. 12/10/18: stable overnight, await return of bowel function. Cont NPO. 12/11/18: SBO resolving, limited sips clear liquid. 12/12/18: continues to improve. ADAT. Probable DC later today. Will need chronic PO cathartics. DC teaching done. 12/12/18: Doing well. Tolerating regular diet. He's had several BMs today. Wishes to go home. Will d/c to home today. (2) Hypoxia Status: Chronic Hospital Course & Plan: uses oxygen at home 2 LPM baseline. Will check CXR this am. Cont pulm toilet. 12/11/18: hypoxia improved, O2 requirements back to baseline. 12/12/18: no further resp difficulties. Departure Discharge to: Home, Self Care Discharge Instructions Home Meds Active Scripts Levothyroxine Sodium (LEVOTHYROXINE SODIUM) 75 Mcg Tablet, 75 MCG PO QDAY, #90 TAB 3 Refills Prov:JOSÉ MIGUEL COLMENARES MD 11/14/18 Tramadol Hcl (TRAMADOL HCL) 50 Mg Tablet, 50 MG PO QID PRN for PAIN, #120 TAB 5 Refills Prov:JOSÉ MIGUEL COLMENARES MD 10/28/18 Hydroxyzine Hcl (HYDROXYZINE HCL) 25 Mg Tablet, 25 MG PO QHS PRN for sleep, itching, #30 TAB 3 Refills Prov:JOSÉ MIGUEL COLMENARES MD 10/28/18 Ondansetron (ZOFRAN ODT) 4 Mg Tab.rapdis, 4 MG PO every 6 hours PRN for NAUSEA/VOMITING, #10 TAB TAKE 1 TABLET BY MOUTH EVERY 12 HOURS Prov:CHANELLE ART DO 07/13/18 Febuxostat (ULORIC) 40 Mg Tablet, 40 MG PO QDAY, #30 TAB 11 Refills Prov:JOSÉ MIGUEL COLMENARES MD 07/07/18 Pantoprazole Sodium (PANTOPRAZOLE SODIUM) 40 Mg Tablet.dr, 40 MG PO QDAY, #90 TAB.SR 3 Refills Prov:JOSÉ MIGUEL COLMENARES MD 12/22/17 Reported Medications Warfarin Sodium (WARFARIN SODIUM) 5 Mg Tablet, 5 MG PO QDAY, TAB 09/14/18 Folic Acid (FOLIC ACID) 1 Mg Tablet, 1 MG PO QDAY, TAB 09/08/18 Docusate Sodium (COLACE) 100 Mg Capsule, 100 MG PO PRN, CAPSULE 08/07/18 Discontinued Reported Medications Lisinopril (LISINOPRIL) 5 Mg Tablet, 5 MG PO QDAY, TAB 12/09/18 Vitamin B Complex (VITAMIN B COMPLEX) 1 Each Capsule, 1 EACH PO DAILY, CAPSULE 09/08/18 Colchicine (COLCRYS) 0.6 Mg Tablet, 0.6 MG PO BID PRN for FOR GOUT ATTACK 07/07/18 Diet: Regular Activity: As Tolerated Special Instructions: You may give yourself a dulcolax suppository as needed for constipation. Also, starting tomorrow, take 17 grams of Miralax in a tall glass of water every morning. You can resume all of the rest of your medications, including coumadin (warfarin) as they were prescribed. Please call my office at [phone] if you are having problems after discharge. JAGJIT PRESTON MD Dec 12, 2018 15:33
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
== END 2018-12-12 15:50 | disposition home or self-care (01) | DRG 390 ==
LOC: ER 02:54 → EDBEDREQ 03:50 → MED 04:25
PROVIDERS: ADMIT Surgery; ATTEND Surgery
DX: K56.51 Intestinal adhesions [bands], with partial obstruction (principal); R09.02 Hypoxemia; Z88.5 Allergy status to narcotic agent; Z87.828 Personal history of other (healed) physical injury and trauma; Z79.01 Long term (current) use of anticoagulants
CPT/HCPCS: 36415; 71045; 74177; 82040; 82247; 82310; 82374; 82435; 82565; 82947; 83605; 83690; 84075; 84132; 84155; 84295; 84450; 84460; 84520; 85025; 85027; 85610; 85730; 86140; 96361; 96374; 96375; 96376; 99285; C9113; J1170; J1650; J2405; J3480; J7030; Q0163; Q9967

== ENCOUNTER → 2019-01-16 | Outpatient (CLI) | payer MEDICARE, OTHER ==
[2018-12-09 10:20] VITALS: BMI 13.3
[~2019-01-16] MED LIST changes: +ALBU8.5H IH; +AZIT-1 PO; +BENZ200C15 PO; +GUAI120L3 PO; +LISI5TAB25 PO
--- NOTE | 2019-01-16 10:51 | RADIOLOGY IMAGING REPORT ---
FACILITY: [facility] [place] PATIENT NAME: Chito Jolley : 1945 MR: [id number] V: [id number] EXAM DATE: ORDERING PHYSICIAN: STACIE MORELAND TECHNOLOGIST: [facility] Patient: Chito Jolley : 1945 Visit/Account:[id number] Date of Sevice: 01/16/2019 EXAMINATION: Chest radiographs 2 views HISTORY: Cough. COMPARISON: 12/10/2018. FINDINGS: PA and lateral views of the chest are submitted. Lines/tubes: None. Lungs/pleura: Chronic elevation of the right hemidiaphragm. No focal consolidation or pleural effus ion. Heart: Negative. Mediastinum: Aorta is mildly tortuous and calcified. Bony structures/body wall: Left shoulder arthroplasty partly visualized. IMPRESSION: 1. No radiographic evidence of acute cardiopulmonary disease. 2. Chronic elevation of the right hemidiaphragm, unchanged. Report Dictated By: Sintia Murray MD at 01/16/2019 10:45 AM Report E-Signed By: Sintia Murray MD at 01/16/2019 10:48 AM WSN:[id number]
== END ==
LOC: RAD 09:44
PROVIDERS: ATTEND Nurse Practitioner Primary Care
DX: R05 Cough (principal)
CPT/HCPCS: 71046

== ENCOUNTER → 2019-01-30 | Outpatient (CLI) | payer MEDICARE, OTHER ==
[2018-12-09 10:20] VITALS: BMI 13.3
--- NOTE | 2019-01-30 10:12 | EKG ---
FACILITY: [facility] PATIENT NAME: CORDELIA NEAL : [id number] MR: [id number] V: [id number] EXAM DATE: ORDERING PHYSICIAN: JOSÉ MIGUEL COLMENARES TECHNOLOGIST: JANNA aPlm Reason : Blood Pressure : / mmHG Vent. Rate : 084 BPM Atrial Rate : 084 BPM P-R Int : 208 ms QRS Dur : 106 ms QT Int : 394 ms P-R-T Axes : 066 -60 060 degrees QTc Int : 465 ms Sinus rhythm with occasional premature ventricular complexes Left axis deviation No ST-T abnormalities When compared with ECG of 28-OCT-2018 11:47, Relatively unchanged Confirmed by ITZEL CRAFT ([id number]) on 01/30/2019 11:10:41 AM Referred By: DEDRA Confirmed By:ITZEL CRAFT
[2019-01-30 10:39] LABS: INR 1.7
== END ==
LOC: LAB 09:20
PROVIDERS: ATTEND Internal Medicine
DX: I82.409 Acute embolism and thrombosis of unspecified deep veins of unspecified lower extremity (principal); I26.99 Other pulmonary embolism without acute cor pulmonale; I49.3 Ventricular premature depolarization
CPT/HCPCS: 36415; 85610; 93005

== ENCOUNTER → 2019-01-31 | Outpatient (CLI) | payer MEDICARE, OTHER ==
[2018-12-09 10:20] VITALS: BMI 13.3
== END ==
LOC: US 01:18
PROVIDERS: ATTEND Internal Medicine
DX: I35.0 Nonrheumatic aortic (valve) stenosis (principal); I34.1 Nonrheumatic mitral (valve) prolapse; I07.1 Rheumatic tricuspid insufficiency
CPT/HCPCS: 93306

== ENCOUNTER → 2019-03-27 | Outpatient (CLI) | payer MEDICARE, OTHER ==
[2018-12-09 10:20] VITALS: BMI 13.3
[~2019-03-27] MED LIST changes: -TRAZ50TA34 PO; +TRAZ50TA52 PO
[2019-03-27 08:53] LABS: PLATELET COUNT, AUTOMATED 219 K/uL (150-450)
[2019-03-27 08:59] LABS: INR 2.3
[2019-03-27 09:25] LABS: LDL CHOLESTEROL 132 mg/dl
== END ==
LOC: LAB 08:33
PROVIDERS: ATTEND Internal Medicine
DX: I35.0 Nonrheumatic aortic (valve) stenosis (principal); I10 Essential (primary) hypertension; I27.20 Pulmonary hypertension, unspecified
CPT/HCPCS: 36415; 83036; 84439; 84443; 85025; 85610; G0103; 82040; 82247; 82310; 82374; 82435; 82465; 82565; 82947; 83718; 84075; 84132; 84153; 84155; 84295; 84450; 84460; 84478; 84520